=== PATIENT | male | born 1940 | race African-American/Black ===

== ENCOUNTER 2019-04-07 14:23 | Emergency (ER) | payer OTHER, MEDICARE ==
[2019-04-07] MEDS ORDERED: NA CHLORIDE 0.9% 1,000 ML ONE (15:01)
[2019-04-07] MEDS ORDERED: IPRATROPIUM BROM 0.5MG/2.5ML ONE (15:01)
[2019-04-07] MEDS ORDERED: CEFTRIAXONE/SWI 1gm 1 GM/10 ML SYR ONE (15:01)
[2019-04-07] MEDS ORDERED: METHYLPREDNISOLONE 125 MG INJ ONE (15:01)
[2019-04-07] MEDS ORDERED: ALBUTEROL 2.5 MG/3 ML NEB SOL ONE (15:01)
--- NOTE | 2019-04-07 15:25 | RAD REPORT ---
EXAM DESCRIPTION: RAD - Chest Single View - 04/07/2019 3:12 pm CLINICAL HISTORY: DYSPNEA Chest pain. COMPARISON: Chest Single View dated 09/14/2017; Chest Pa And Lat (2 Views) dated 07/17/2017; Chest Sin gle View dated 01/24/2017 FINDINGS: Portable technique limits examination quality. The lungs are grossly clear. The heart is normal in size. No displaced fractures. IMPRESSION: No acute intrathoracic process suspected.
[2019-04-07 15:45] LABS: Absolute Lymphocytes (CBC) 2.4 K/uL (0.7-4.9); Basophils % 1.2 % (0-1.3); Hematocrit 46.7 % (39.6-49.0); Lymphocytes % 26.5 % (15.3-44.8); MPV 9.4 fL (7.6-11.3); Protime INR 0.89; RBC Red Blood Cell Count 5.52 M/uL (4.33-5.43)
[2019-04-07 15:58] LABS: ALT/SGPT 64 U/L (12-78); AST/SGOT 60 U/L (15-37); Albumin 3.6 g/dL (3.4-5.0); Alkaline Phosphatase 105 U/L (45-117); BUN Blood Urea Nitrogen 8 mg/dL (7-18); Bicarbonate 29 mmol/L (21-32); Bilirubin Direct 0.2 mg/dL (0-0.2); Bilirubin Total 0.6 mg/dL (0.2-1.0); Glucose Level 112 mg/dL (74-106); Lipase 154 U/L (73-393); Magnesium 2.2 mg/dL (1.8-2.4); NT PRO-BNP 70 pg/mL (<450); Potassium 4.2 mmol/L (3.5-5.1); Protein, Total 8.1 g/dL (6.4-8.2); Sodium Level 141 mmol/L (136-145); Troponin (Emerg Dept Use Only) < 0.02 ng/mL (0.0-0.045)
--- NOTE | 2019-04-07 17:25 | RAD REPORT ---
EXAM DESCRIPTION: CT - Chest For Pe Angio - 04/07/2019 4:51 pm CLINICAL HISTORY: Chest pain. COPD;Cough COMPARISON: Chest Single View dated 04/07/2019 TECHNIQUE: CT angiogram of the pulmonary arteries was performed with MIP. All CT scans are performed using dose optimization technique as appropriate and may include automated exposure control or mA/KV adjustment according to patient size. FINDINGS: No evidence of pulmonary thromboembolism. No acute aortic finding demonstrated. Mild artifact is present related to respiration. The lungs are grossly clear. No significant pericardial or pleural fluid. No concerning bony finding. IMPRESSION: No evidence of pulmonary thromboembolism. No acute lung findings.
--- NOTE | 2019-04-07 17:32 | EDPHYS ---
Physician Documentation [facility] Name: Franklin Donahue Age: 78 yrs Sex: Male : 1940 Arrival Date: 04/07/2019 Time: 14:27 Bed 7 Private MD: Ivan Ceja B ED Physician Timothy Townsend HPI: 04/07 16:33 This 78 yrs old Black Male presents to ER via Ambulatory with complaints of Congestion. corrina 16:33 The patient has shortness of breath at rest, with light activity. Onset: The corrina symptoms/episode began/occurred 14 day(s) ago. Duration: The symptoms are continuous, and are steadily getting worse. The patient's shortness of breath is aggravated by coughing, exertion, light activity, supine position, walking, is alleviated by rest, sitting up, application of supplemental oxygen. The patient or guardian reports cough, that is intermittent, difficulty breathing, flu symptoms, arthralgias, low-grade fever. Modifying factors: The symptoms are alleviated by remaining still, the symptoms are aggravated by activity. Severity of symptoms: At their worst the symptoms were mild moderate in the emergency department the symptoms are unchanged. Historical: - Allergies: 14:34 No Known Allergies; la1 - PMHx: 14:34 Hyperlipidemia; Hypertension; la1 - Immunization history:: Adult Immunizations up to date. - Social history:: Smoking status: Patient uses tobacco products, tobacco pipe daily. - Ebola Screening: : No symptoms or risks identified at this time. - Family history:: not pertinent. ROS: 16:33 Constitutional: Negative for fever, chills, and weight loss, Eyes: Negative for injury, corrina pain, redness, and discharge, ENT: Negative for injury, pain, and discharge, Neck: Negative for injury, pain, and swelling, Cardiovascular: Negative for chest pain, palpitations, and edema, Abdomen/GI: Negative for abdominal pain, nausea, vomiting, diarrhea, and constipation, Back: Negative for injury and pain, : Negative for injury, bleeding, discharge, and swelling, MS/Extremity: Negative for injury and deformity, Skin: Negative for injury, rash, and discoloration, Neuro: Negative for headache, weakness, numbness, tingling, and seizure, Psych: Negative for depression, anxiety, suicide ideation, homicidal ideation, and hallucinations, Allergy/Immunology: Negative for hives, rash, and allergies, Endocrine: Negative for neck swelling, polydipsia, polyuria, polyphagia, and marked weight changes, Hematologic/Lymphatic: Negative for swollen nodes, abnormal bleeding, and unusual bruising. 16:33 Respiratory: Positive for cough, shortness of breath, wheezing, inspiratory, expiratory. Exam: 16:33 Constitutional: This is a well developed, well nourished patient who is awake, alert, corrina and in no acute distress. Head/Face: Normocephalic, atraumatic. Eyes: Pupils equal round and reactive to light, extra-ocular motions intact. Lids and lashes normal. Conjunctiva and sclera are non-icteric and not injected. Cornea within normal limits. Periorbital areas with no swelling, redness, or edema. ENT: Nares patent. No nasal discharge, no septal abnormalities noted. Tympanic membranes are normal and external auditory canals are clear. Oropharynx with no redness, swelling, or masses, exudates, or evidence of obstruction, uvula midline. Mucous membranes moist. Neck: Trachea midline, no thyromegaly or masses palpated, and no cervical lymphadenopathy. Supple, full range of motion without nuchal rigidity, or vertebral point tenderness. No Meningismus. Chest/axilla: Normal chest wall appearance and motion. Nontender with no deformity. No lesions are appreciated. Cardiovascular: Regular rate and rhythm with a normal S1 and S2. No gallops, murmurs, or rubs. Normal PMI, no JVD. No pulse deficits. Abdomen/GI: Soft, non-tender, with normal bowel sounds. No distension or tympany. No guarding or rebound. No evidence of tenderness throughout. Back: No spinal tenderness. No costovertebral tenderness. Full range of motion. Male : Normal genitalia with no discharge or lesions. Skin: Warm, dry with normal turgor. Normal color with no rashes, no lesions, and no evidence of cellulitis. MS/ Extremity: Pulses equal, no cyanosis. Neurovascular intact. Full, normal range of motion. Neuro: Awake and alert, GCS 15, oriented to person, place, time, and situation. Cranial nerves II-XII grossly intact. Motor strength 5/5 in all extremities. Sensory grossly intact. Cerebellar exam normal. Normal gait. Psych: Awake, alert, with orientation to person, place and time. Behavior, mood, and affect are within normal limits. 16:33 Respiratory: mild respiratory distress is noted, Respirations: no acute changes, Breath sounds: bronchial sounds, that are moderate, decreased breath sounds, rhonchi, + upper airway congestion. wheezing: inspiratory expiratory Respiratory rate: 20 Vital Signs: 14:35 BP 140 / 83; Pulse 110; Resp 18; Temp 99.1; Pulse Ox 95% on R/A; Weight 81.65 kg; la1 Height 5 ft. 9 in. (175.26 cm); 15:30 BP 142 / 80; Pulse 100; Resp 18 S; Pulse Ox 94% on R/A; sg 16:30 BP 150 / 72; Pulse 99; Resp 17 S; Pulse Ox 94% on R/A; sg 17:57 BP 153 / 78; Pulse 100; Resp 18; Pulse Ox 98% on R/A; sg 14:35 Body Mass Index 26.58 (81.65 kg, 175.26 cm) la1 MDM: 14:36 Patient medically screened. [facility] 16:35 Data reviewed: vital signs, nurses notes, lab test result(s), EKG, radiologic studies, [facility] CT scan, plain films. 04/07 14:56 Order name: Basic Metabolic Panel; Complete Time: 16:11 [facility] 04/07 14:56 Order name: CBC with Diff; Complete Time: 16:11 [facility] 04/07 14:56 Order name: LFT's; Complete Time: 16:11 [facility] 04/07 14:56 Order name: Magnesium; Complete Time: 16:11 [facility] 04/07 14:56 Order name: NT PRO-BNP; Complete Time: 16:11 [facility] 04/07 14:56 Order name: PT-INR; Complete Time: 16:11 [facility] 04/07 14:56 Order name: Troponin (emerg Dept Use Only); Complete Time: 16:11 [facility] 04/07 14:56 Order name: XRAY Chest (1 view); Complete Time: 16:11 [facility] 04/07 14:56 Order name: Lipase; Complete Time: 16:11 [facility] 04/07 14:56 Order name: Blood Culture Adult (2) [facility] 04/07 14:56 Order name: Procalcitonin; Complete Time: 16:30 [facility] 04/07 14:57 Order name: Influenza Screen (a \T\ B); Complete Time: 16:11 [facility] 04/07 16:30 Order name: CT Chest For PE Angio; Complete Time: 17:30 [facility] 04/07 14:56 Order name: EKG; Complete Time: 14:58 [facility] 04/07 14:56 Order name: Cardiac monitoring; Complete Time: 15:03 [facility] 04/07 14:56 Order name: EKG - Nurse/Tech; Complete Time: 15:03 [facility] 04/07 14:56 Order name: IV Saline Lock; Complete Time: 15:38 [facility] 04/07 14:56 Order name: Labs collected and sent; Complete Time: 15:38 [facility] 04/07 14:56 Order name: O2 Per Protocol; Complete Time: 15:04 [facility] 04/07 14:56 Order name: O2 Sat Monitoring; Complete Time: 15:04 [facility] Administered Medications: 15:20 Drug: Albuterol - atroVENT (3:1) (2.5 mg - 0.5 mg) 3 ml Route: Nebulizer; sg 16:00 Follow up: Response: No adverse reaction sv 17:00 Drug: NS 0.9% 1000 ml Route: IV; Rate: 125 ml/hr; Site: right forearm; sg 17:00 Drug: Rocephin 1 grams Route: IV; Rate: per protocol; Site: right forearm; sg 18:00 Follow up: Response: No adverse reaction; IV Status: Completed infusion; IV Intake: sg 990ml 17:02 Drug: SOLU-Medrol 125 mg Route: IVP; Site: right forearm; sg 18:00 Follow up: Response: No adverse reaction sv 17:42 Not Given (Patient Refused): Albuterol 5 mg Inhalation once sg 17:57 Not Given (Other Intervention Used): Zithromax 500 mg IVPB once over 1 hrs; mix in 250 sg mL NS 17:57 Drug: Zithromax 500 mg Route: PO; sg 18:39 Follow up: Response: No adverse reaction sv 18:15 Drug: Augmentin 875 mg Route: PO; sg 18:38 Follow up: Response: No adverse reaction sv Disposition: 04/07/19 17:31 Discharged to Home. Impression: Bronchitis, not specified as acute or chronic, Tobacco use, Tobacco abuse counseling, Cough. - Condition is Stable. - Discharge Instructions: Acute Bronchitis, Adult, How to Use an Inhaler, Steps to Quit Smoking, Smoking Hazards, Upper Respiratory Infection, Adult, Upper Respiratory Infection, Adult, [id number], Steps to Quit Smoking, [id number]. - Prescriptions for Albuterol Sulfate 90 mcg/actuation - inhale 1-2 puff by INHALATION route every 4-6 hours; 1 Inhaler. Albuterol Sulfate 2.5 mg /3 mL (0.083 %) Inhalation Solution for Nebulization - inhale 1 unit by NEBULIZATION route every 8 hours As needed; 1 box. Prednisone 20 mg Oral Tablet - take 2 tablet by ORAL route once daily for 5 days; 10 tablet. Zithromax 500 mg Oral Tablet - take 1 tablet by ORAL route once daily for 5 days; 5 tablet. Cheratussin AC 10- 100 mg/5 mL Oral liquid - take 10 milliliter by ORAL route every 4 hours; 160 milliliter. Augmentin 875- 125 mg Oral Tablet - take 1 tablet by ORAL route every 12 hours for 10 days; 20 tablet. - Medication Reconciliation Form, Thank You Letter, Antibiotic Education, Prescription Opioid Use form. - Follow up: Ivan Ceja; When: 2 - 3 days; Reason: Recheck today's complaints, Continuance of care, Re-evaluation by your physician. Follow up: Shyam Graff; When: 2 - 3 days; Reason: Recheck today's complaints, Continuance of care, Re-evaluation by your physician. - Problem is new. - Symptoms have improved. Signatures: Dispatcher [employer] EDMS Mark Bowman RN RN sg Anderson, Corey, MD MD cha Attema, Lee, RN RN la1 Verde, Stephanie RN Corrections: (The following items were deleted from the chart) 18:03 17:31 04/07/2019 17:31 Discharged to Home. Impression: Bronchitis, not specified as corrina acute or chronic; Tobacco use; Tobacco abuse counseling. Condition is Stable. Discharge Instructions: Acute Bronchitis, Adult, How to Use an Inhaler, Steps to Quit Smoking, Smoking Hazards, Upper Respiratory Infection, Adult, Upper Respiratory Infection, Adult, [id number], Steps to Quit Smoking, [id number]. Prescriptions for Albuterol Sulfate 90 mcg/actuation - inhale 1-2 puff by INHALATION route every 4-6 hours; 1 Inhaler, Albuterol Sulfate 2.5 mg /3 mL (0.083 %) Inhalation Solution for Nebulization - inhale 1 unit by NEBULIZATION route every 8 hours As needed; 1 box, Prednisone 20 mg Oral Tablet - take 2 tablet by ORAL route once daily for 5 days; 10 tablet, Zithromax 500 mg Oral Tablet - take 1 tablet by ORAL route once daily for 5 days; 5 tablet. and Forms are Medication Reconciliation Form, Thank You Letter, Antibiotic Education, Prescription Opioid Use. Follow up: Ivan Ceja; When: 2 - 3 days; Reason: Recheck today's complaints, Continuance of care, Re-evaluation by your physician. Follow up: Shyam Graff; When: 2 - 3 days; Reason: Recheck today's complaints, Continuance of care, Re-evaluation by your physician. Problem is new. Symptoms have improved. corrina 18:47 18:03 04/07/2019 17:31 Discharged to Home. Impression: Bronchitis, not specified as sg acute or chronic; Tobacco use; Tobacco abuse counseling; Cough. Condition is Stable. Discharge Instructions: Acute Bronchitis, Adult, How to Use an Inhaler, Steps to Quit Smoking, Smoking Hazards, Upper Respiratory Infection, Adult, Upper Respiratory Infection, Adult, [id number], Steps to Quit Smoking, [id number]. Prescriptions for Albuterol Sulfate 90 mcg/actuation - inhale 1-2 puff by INHALATION route every 4-6 hours; 1 Inhaler, Albuterol Sulfate 2.5 mg /3 mL (0.083 %) Inhalation Solution for Nebulization - inhale 1 unit by NEBULIZATION route every 8 hours As needed; 1 box, Prednisone 20 mg Oral Tablet - take 2 tablet by ORAL route once daily for 5 days; 10 tablet, Zithromax 500 mg Oral Tablet - take 1 tablet by ORAL route once daily for 5 days; 5 tablet. and Forms are Medication Reconciliation Form, Thank You Letter, Antibiotic Education, Prescription Opioid Use. Follow up: Ivan Ceja; When: 2 - 3 days; Reason: Recheck today's complaints, Continuance of care, Re-evaluation by your physician. Follow up: Shyam Graff; When: 2 - 3 days; Reason: Recheck today's complaints, Continuance of care, Re-evaluation by your physician. Problem is new. Symptoms have improved. corrina
--- NOTE | 2019-04-07 17:32 | ER ---
Nurse's Notes [facility] Name: Franklin Donahue Age: 78 yrs Sex: Male : 1940 Arrival Date: 04/07/2019 Time: 14:27 Bed 7 Private MD: Ivan Ceja B Diagnosis: Bronchitis, not specified as acute or chronic;Tobacco use;Tobacco abuse counseling;Cough Presentation: 04/07 14:33 Presenting complaint: Patient states: I feel fatigue, have had a productive cough for la1 about a week. Transition of care: patient was not received from another setting of care. Resp Distress? No respiratory distress is noted at this time. Onset of symptoms was April 07, 2019. Risk Assessment: Do you want to hurt yourself or someone else? Patient reports no desire to harm self or others. Initial Sepsis Screen: Does the patient meet any 2 criteria? No. Patient's initial sepsis screen is negative. Does the patient have a suspected source of infection? No. Patient's initial sepsis screen is negative. Care prior to arrival: None. 14:33 Method Of Arrival: Ambulatory la1 14:33 Acuity: CORY 3 la1 Historical: - Allergies: 14:34 No Known Allergies; la1 - PMHx: 14:34 Hyperlipidemia; Hypertension; la1 - Immunization history:: Adult Immunizations up to date. - Social history:: Smoking status: Patient uses tobacco products, tobacco pipe daily. - Ebola Screening: : No symptoms or risks identified at this time. - Family history:: not pertinent. Screenin:15 Abuse screen: Denies threats or abuse. Denies injuries from another. Nutritional sg screening: No deficits noted. Tuberculosis screening: No symptoms or risk factors identified. Never had TB. Fall Risk None identified. Assessment: 15:15 General: Appears in no apparent distress. well groomed, well developed, well nourished, sg Behavior is calm, cooperative, appropriate for age. General: Reports chills for 2-3 days, fatigue for. Pain: Complains of pain in body aches. Neuro: Level of Consciousness is awake, alert, obeys commands, Oriented to person, place, time, Accounts Payable Processor are equal bilaterally Moves all extremities. Full function Gait is steady, Speech is normal, Facial symmetry appears normal, Pupils are PERRLA. Cardiovascular: Heart tones S1 S2 present Capillary refill is brisk in bilateral fingers Patient's skin is warm and dry. Chest pain is denied. Respiratory: Airway is patent Respiratory effort is even, unlabored, Breath sounds are diminished in left posterior lower lobe and right posterior lower lobe. GI: Abdomen is round non-distended, Reports tolerance of fluids, tolerance of food. : No signs and/or symptoms were reported regarding the genitourinary system. EENT: Oral mucosa is moist. Derm: Skin is pink, warm \T\ dry. Musculoskeletal: Circulation, motion, and sensation intact. Range of motion: intact in all extremities, Swelling absent. Vital Signs: 14:35 BP 140 / 83; Pulse 110; Resp 18; Temp 99.1; Pulse Ox 95% on R/A; Weight 81.65 kg; la1 Height 5 ft. 9 in. (175.26 cm); 15:30 BP 142 / 80; Pulse 100; Resp 18 S; Pulse Ox 94% on R/A; sg 16:30 BP 150 / 72; Pulse 99; Resp 17 S; Pulse Ox 94% on R/A; sg 17:57 BP 153 / 78; Pulse 100; Resp 18; Pulse Ox 98% on R/A; sg 14:35 Body Mass Index 26.58 (81.65 kg, 175.26 cm) la1 ED Course: 14:27 Patient arrived in ED. as 14:27 Ivan Ceja MD is Private Physician. as 14:34 Triage completed. la1 14:35 Arm band placed on left wrist. la1 14:36 Timothy Townsend MD is Attending Physician. [facility] 14:38 Mark Bowman, SEAN is Primary Nurse. sg 15:06 EKG done, by career technology teacher. reviewed by Timothy Townsend MD. sm3 15:13 XRAY Chest (1 view) In Process Unspecified. EDMS 15:15 Initial lab(s) drawn, by vt, sent to lab. First set of blood cultures drawn by me. sg Inserted saline lock: 20 gauge in right forearm, using aseptic technique. Blood collected. 15:30 Second set of blood cultures drawn by me. sg 16:[address] sg 16:52 CT Chest For PE Angio In Process Unspecified. EDMS 17:31 Ivan Ceja MD is Referral Physician. corrina 17:31 Shyam Graff MD is Referral Physician. [facility] Administered Medications: 15:20 Drug: Albuterol - atroVENT (3:1) (2.5 mg - 0.5 mg) 3 ml Route: Nebulizer; sg 16:00 Follow up: Response: No adverse reaction sv 17:00 Drug: NS 0.9% 1000 ml Route: IV; Rate: 125 ml/hr; Site: right forearm; sg 17:00 Drug: Rocephin 1 grams Route: IV; Rate: per protocol; Site: right forearm; sg 18:00 Follow up: Response: No adverse reaction; IV Status: Completed infusion; IV Intake: sg 990ml 17:02 Drug: SOLU-Medrol 125 mg Route: IVP; Site: right forearm; sg 18:00 Follow up: Response: No adverse reaction sv 17:42 Not Given (Patient Refused): Albuterol 5 mg Inhalation once sg 17:57 Not Given (Other Intervention Used): Zithromax 500 mg IVPB once over 1 hrs; mix in 250 sg mL NS 17:57 Drug: Zithromax 500 mg Route: PO; sg 18:39 Follow up: Response: No adverse reaction sv 18:15 Drug: Augmentin 875 mg Route: PO; sg 18:38 Follow up: Response: No adverse reaction sv Intake: 18:00 IV: 990ml; Total: 990ml. sg Outcome: 17:31 Discharge ordered by . [facility] 18:47 Patient left the ED. sg Signatures: Dispatcher [employer] Nica Gustafson RN RN sv Gay, Steven, RN RN sg Anderson, Corey, MD MD cha Martinez, Amelia as Attema, Lee, RN RN la1 Yesenia Shultz 3
[2019-04-07] MEDS ORDERED: AZITHROMYCIN 250 MG TAB ONE (17:53)
[2019-04-07] MEDS ORDERED: AMOX/K CLAV 875 MG TAB ONE (18:02)
--- NOTE | 2019-04-08 07:15 | EKG ---
Test Date: 2019-04-07 Test Time: 15:02:05 Division Toll Wire Chief: MIGUEL MEASUREMENT RESULTS: Intervals: Rate: 93 VT: 156 QRSD: 128 QT: 386 QTc: 479 Roosevelt: P: 77 VT: 156 QRS: 104 T: 52 INTERPRETIVE STATEMENTS: Normal sinus rhythm Right bundle branch block Abnormal ECG Compared to ECG 09/14/2017 13:02:37 Right bundle-branch block now present Atrial premature complex(es) no longer present Electronically Signed On 04-08-19 07:13:28 CDT by Bola Lundberg
== END 2019-04-07 18:47 | disposition home or self-care (01) ==
LOC: ER 14:23
DX: J40 Bronchitis, not specified as acute or chronic (principal); I10 Essential (primary) hypertension; Z72.0 Tobacco use; Z71.6 Tobacco abuse counseling
CPT/HCPCS: 96365; 93005; 87040 ×2; 85025; 80048; 36415; 83735; 85610; 80076; 84484; 83690; 84145; 83880; 87804 ×2; 71275; 71045; 94640; 96375; 99285; Q9967; J0696; J7030; J2930

== ENCOUNTER 2019-04-13 12:23 | Emergency (ER) | payer OTHER, MEDICARE ==
[2019-04-13] MEDS ORDERED: NA CHLORIDE 0.9% 1,000 ML ONE (12:48)
[2019-04-13 13:23] LABS: Absolute Lymphocytes (CBC) 2.8 K/uL (0.7-4.9); Basophils % 0.6 % (0-1.3); Hematocrit 46.6 % (39.6-49.0); Lymphocytes % 30.5 % (15.3-44.8); MPV 9.3 fL (7.6-11.3); RBC Red Blood Cell Count 5.46 M/uL (4.33-5.43)
[2019-04-13 13:32] LABS: BUN Blood Urea Nitrogen 20 mg/dL (7-18); Bicarbonate 28 mmol/L (21-32); Glucose Level 123 mg/dL (74-106); Potassium 3.8 mmol/L (3.5-5.1); Sodium Level 138 mmol/L (136-145)
--- NOTE | 2019-04-13 13:47 | RAD REPORT ---
EXAM DESCRIPTION: Noe Lr (2 Views)04/13/2019 1:23 pm CLINICAL HISTORY: Cough COMPARISON: April 07, 2019 FINDINGS: The lungs appear clear of acute infiltrate. The heart is borderline enlarged IMPRESSION: No acute abnormalities displayed
--- NOTE | 2019-04-13 14:39 | ER ---
Nurse's Notes [facility] Name: Franklin Donahue Age: 78 yrs Sex: Male : 1940 Arrival Date: 04/13/2019 Time: 12:27 Bed 7 Private MD: Ivan Ceja B Diagnosis: Malnutrition;Malaise and fatigue Presentation: 04/13 12:33 Presenting complaint: Patient states: "I was seen here last week with bronchitis and I aa5 finished the 5 days of antibiotics but now I am just so weak and I have no appetite and I am sure I am dehydrated" Pt denies pain. 12:33 Transition of care: patient was not received from another setting of care. Onset of aa5 symptoms was March 2019. Care prior to arrival: None. 12:33 Acuity: CORY 3 aa5 12:33 Method Of Arrival: Ambulatory aa5 12:37 Initial Sepsis Screen: Does the patient meet any 2 criteria? HR > 90 bpm. No. Patient's sv initial sepsis screen is negative. Does the patient have a suspected source of infection? No. Patient's initial sepsis screen is negative. 12:37 Risk Assessment: Do you want to hurt yourself or someone else? Patient reports no sv desire to harm self or others. Care prior to arrival: Medication(s) given: finished abx recently. Historical: - Allergies: 12:35 No Known Allergies; sv - PMHx: 12:35 Hyperlipidemia; Hypertension; sv - Immunization history:: Adult Immunizations up to date. - Ebola Screening: : No symptoms or risks identified at this time. - Social history:: Smoking status: Patient uses tobacco products, pipe. Screenin:36 Abuse screen: Denies threats or abuse. Denies injuries from another. Nutritional sv screening: No deficits noted. Tuberculosis screening: No symptoms or risk factors identified. Fall Risk None identified. Assessment: 12:50 General: Appears in no apparent distress. comfortable, slender, Behavior is calm, sv cooperative, appropriate for age. General: Reports fatigue for >3 days, decreased appetite. Pain: Denies pain. Neuro: Level of Consciousness is awake, alert, obeys commands, Oriented to person, place, time, situation, Moves all extremities. Full function Gait is steady, Reports weakness. Respiratory: Airway is patent Respiratory effort is even, unlabored, Respiratory pattern is regular, symmetrical, Breath sounds are clear bilaterally. Derm: Skin is pink, warm \\T\\ dry. 13:43 Reassessment: Patient appears in no apparent distress at this time. No changes from previously documented assessment. Patient and/or family updated on plan of care and expected duration. Pain level reassessed. Patient is alert, oriented x 3, equal unlabored respirations, skin warm/dry/pink. Vital Signs: 12:34 BP 153 / 92; Pulse 105; Resp 18 S; Temp 98.2(O); Pulse Ox 99% on R/A; Weight 80.74 kg aa5 (R); Height 5 ft. 9 in. (175.26 cm) (R); Pain 0/10; 13:42 BP 136 / 75; Pulse 81; Resp 18; Pulse Ox 100% ; sv 14:45 BP 132 / 78; Pulse 79; Resp 18; Pulse Ox 99% ; sv 12:34 Body Mass Index 26.29 (80.74 kg, 175.26 cm) aa5 ED Course: 12:27 Patient arrived in ED. mr 12:27 Ivan Ceja MD is Private Physician. mr 12:34 Nica Peralta RN is Primary Nurse. sv 12:35 Arm band placed on Patient placed in an exam room, on a stretcher, on pulse oximetry. sv 12:35 Patient has correct armband on for positive identification. Bed in low position. Call sv light in reach. Adult w/ patient. Pulse ox on. NIBP on. Door closed. Head of bed elevated. 12:37 [facility] Guard[facility]C [facility]. snw 12:37 Romina Khan MD is Attending Physician. snw 12:38 Triage completed. aa5 12:53 Radiology exam delayed due to RN WILL CALL WHEN PT IS READY FOR X RAY. mh1 12:55 Initial lab(s) drawn, by me, sent to lab. Inserted saline lock: 20 gauge in right sv forearm, using aseptic technique. Blood collected. Flushed right forearm with 5 ml normal saline. 13:11 Awaiting for x-ray. sv 13:14 Patient moved to radiology. sv 13:15 Warm blanket given. sv 13:27 Patient moved back from radiology. sv 13:27 Awaiting lab results, Awaiting radiology results. sv 13:35 Chest Pa And Lat (2 Views) XRAY In Process Unspecified. EDMS 13:55 Awaiting radiology results. sv 14:36 Ivan Ceja MD is Referral Physician. snw 14:58 No provider procedures requiring assistance completed. IV discontinued, intact, ss bleeding controlled, No redness/swelling at site. Pressure dressing applied. Administered Medications: 13:02 Drug: NS 0.9% 1000 ml Route: IV; Rate: 125 ml/hr; Site: right forearm; sv 14:58 Follow up: IV Status: IV converted to saline lock ss Outcome: 14:37 Discharge ordered by . snw 14:58 Discharged to home ambulatory. ss 14:58 Condition: good 14:58 Discharge instructions given to patient, family, Instructed on discharge instructions, follow up and referral plans. Demonstrated understanding of instructions, follow-up care, medications. 14:58 Patient left the ED. ss Signatures: Dispatcher [employer] EDMS Nica Peralta RN RN Ana Maria Guardado, WEED INSPECTOR-C WEED INSPECTOR-Ernie Zenaida Ramirez mr MaldonadoNicky 1 Tiffany Ty, RN RN aa5 Katrina Linares RN RN
--- NOTE | 2019-04-13 14:39 | EDPHYS ---
Physician Documentation [facility] Name: Franklin Donahue Age: 78 yrs Sex: Male : 1940 Arrival Date: 04/13/2019 Time: 12:27 Bed 7 Private MD: Ivan Ceja B ED Physician Romina Khan HPI: 04/13 13:02 This 78 yrs old Black Male presents to ER via Ambulatory with complaints of Decreased snw Appetite, dehydration. 13:02 Onset: The symptoms/episode began/occurred acutely. Associated signs and symptoms: snw Pertinent positives: feeling poorly, no vomiting, no appetite. It is unknown whether or not the patient has had similar symptoms in the past. The patient has been recently seen by a physician: dillon with bronchitis, does not feel completely recovered. Historical: - Allergies: 12:35 No Known Allergies; sv - PMHx: 12:35 Hyperlipidemia; Hypertension; sv - Immunization history:: Adult Immunizations up to date. - Ebola Screening: : No symptoms or risks identified at this time. - Social history:: Smoking status: Patient uses tobacco products, pipe. ROS: 12:59 Eyes: Negative for injury, pain, redness, and discharge, ENT: Negative for injury, snw pain, and discharge, Neck: Negative for injury, pain, and swelling, Cardiovascular: Negative for chest pain, palpitations, and edema, Respiratory: Negative for shortness of breath, cough, wheezing, and pleuritic chest pain, Abdomen/GI: Negative for abdominal pain, nausea, vomiting, diarrhea, and constipation, Back: Negative for injury and pain, : Negative for injury, bleeding, discharge, and swelling, MS/Extremity: Negative for injury and deformity, Skin: Negative for injury, rash, and discoloration, Neuro: Negative for headache, weakness, numbness, tingling, and seizure, Psych: Negative for depression, anxiety, suicide ideation, homicidal ideation, and hallucinations. 12:59 Constitutional: Positive for body aches, malaise, poor PO intake, most calories from ETOH. Exam: 12:59 Constitutional: This is a well developed, well nourished patient who is awake, alert, snw and in no acute distress. Head/Face: Normocephalic, atraumatic. Eyes: Pupils equal round and reactive to light, extra-ocular motions intact. Lids and lashes normal. Conjunctiva and sclera are non-icteric and not injected. Cornea within normal limits. Periorbital areas with no swelling, redness, or edema. ENT: Nares patent. No nasal discharge, no septal abnormalities noted. Tympanic membranes are normal and external auditory canals are clear. Oropharynx with no redness, swelling, or masses, exudates, or evidence of obstruction, uvula midline. Mucous membranes moist. Neck: Trachea midline, no thyromegaly or masses palpated, and no cervical lymphadenopathy. Supple, full range of motion without nuchal rigidity, or vertebral point tenderness. No Meningismus. Chest/axilla: Normal chest wall appearance and motion. Nontender with no deformity. No lesions are appreciated. Cardiovascular: Tachycardic rate and rhythm with a normal S1 and S2. No gallops, murmurs, or rubs. Normal PMI, no JVD. No pulse deficits. Respiratory: Lungs have equal breath sounds bilaterally, clear to auscultation and percussion. No rales, rhonchi or wheezes noted. No increased work of breathing, no retractions or nasal flaring. Abdomen/GI: Soft, non-tender, with normal bowel sounds. No distension or tympany. No guarding or rebound. No evidence of tenderness throughout. Back: No spinal tenderness. No costovertebral tenderness. Full range of motion. Skin: Warm, dry with normal turgor. Normal color with no rashes, no lesions, and no evidence of cellulitis. MS/ Extremity: Pulses equal, no cyanosis. Neurovascular intact. Full, normal range of motion. Neuro: Awake and alert, GCS 15, oriented to person, place, time, and situation. Cranial nerves II-XII grossly intact. Motor strength 5/5 in all extremities. Sensory grossly intact. Cerebellar exam normal. Normal gait. Psych: Awake, alert, with orientation to person, place and time. Behavior, mood, and affect are within normal limits. Vital Signs: 12:34 BP 153 / 92; Pulse 105; Resp 18 S; Temp 98.2(O); Pulse Ox 99% on R/A; Weight 80.74 kg aa5 (R); Height 5 ft. 9 in. (175.26 cm) (R); Pain 0/10; 13:42 BP 136 / 75; Pulse 81; Resp 18; Pulse Ox 100% ; sv 14:45 BP 132 / 78; Pulse 79; Resp 18; Pulse Ox 99% ; sv 12:34 Body Mass Index 26.29 (80.74 kg, 175.26 cm) aa5 MDM: 12:41 Patient medically screened. snw 13:04 Data reviewed: vital signs, nurses notes. Data interpreted: Pulse oximetry: on room air snw is 99 %. Interpretation: normal. Counseling: I had a detailed discussion with the patient and/or guardian regarding: the historical points, exam findings, and any diagnostic results supporting the discharge/admit diagnosis, the presence of at least one elevated blood pressure reading (>120/80) during this emergency department visit, lab results, radiology results. 14:34 Response to treatment: the patient's symptoms have mildly improved after treatment, snw Discussed need to decrease ETOH consumption and have a well balanced, caloric intake. 04/13 12:45 Order name: CBC with Diff; Complete Time: 13:32 snw 04/13 12:45 Order name: Chem 7; Complete Time: 13:34 snw 04/13 12:45 Order name: Chest Pa And Lat (2 Views) XRAY; Complete Time: 14:01 snw Administered Medications: 13:02 Drug: NS 0.9% 1000 ml Route: IV; Rate: 125 ml/hr; Site: right forearm; sv 14:58 Follow up: IV Status: IV converted to saline lock ss Disposition: 04/13/19 14:37 Discharged to Home. Impression: Malnutrition, Malaise and fatigue. - Condition is Stable. - Discharge Instructions: High-Fiber Diet, Iron-Rich Diet, Fatigue, Malnutrition. - Medication Reconciliation Form, Thank You Letter, Antibiotic Education, Prescription Opioid Use form. - Follow up: Ivan Ceja MD; When: 2 - 3 days; Reason: Recheck today's complaints, Continuance of care, Re-evaluation by your physician. Follow up: Emergency Department; When: As needed; Reason: Worsening of condition. Signatures: Dispatcher [employer] Nica Gustafson RN RN sv Ana Maria Guardado, MILL LABORER-C MILL LABORER-Erniew Katrina Linares RN RN ss Corrections: (The following items were deleted from the chart) 13:05 12:59 Constitutional: This is a well developed, well nourished patient who is awake, snw alert, and in no acute distress. Head/Face: Normocephalic, atraumatic. Eyes: Pupils equal round and reactive to light, extra-ocular motions intact. Lids and lashes normal. Conjunctiva and sclera are non-icteric and not injected. Cornea within normal limits. Periorbital areas with no swelling, redness, or edema. ENT: Nares patent. No nasal discharge, no septal abnormalities noted. Tympanic membranes are normal and external auditory canals are clear. Oropharynx with no redness, swelling, or masses, exudates, or evidence of obstruction, uvula midline. Mucous membranes moist. Neck: Trachea midline, no thyromegaly or masses palpated, and no cervical lymphadenopathy. Supple, full range of motion without nuchal rigidity, or vertebral point tenderness. No Meningismus. Chest/axilla: Normal chest wall appearance and motion. Nontender with no deformity. No lesions are appreciated. Cardiovascular: Regular rate and rhythm with a normal S1 and S2. No gallops, murmurs, or rubs. Normal PMI, no JVD. No pulse deficits. Respiratory: Lungs have equal breath sounds bilaterally, clear to auscultation and percussion. No rales, rhonchi or wheezes noted. No increased work of breathing, no retractions or nasal flaring. Abdomen/GI: Soft, non-tender, with normal bowel sounds. No distension or tympany. No guarding or rebound. No evidence of tenderness throughout. Back: No spinal tenderness. No costovertebral tenderness. Full range of motion. Skin: Warm, dry with normal turgor. Normal color with no rashes, no lesions, and no evidence of cellulitis. MS/ Extremity: Pulses equal, no cyanosis. Neurovascular intact. Full, normal range of motion. Neuro: Awake and alert, GCS 15, oriented to person, place, time, and situation. Cranial nerves II-XII grossly intact. Motor strength 5/5 in all extremities. Sensory grossly intact. Cerebellar exam normal. Normal gait. Psych: Awake, alert, with orientation to person, place and time. Behavior, mood, and affect are within normal limits. snw 14:58 14:37 04/13/2019 14:37 Discharged to Home. Impression: Malnutrition; Malaise and ss fatigue. Condition is Stable. Forms are Medication Reconciliation Form, Thank You Letter, Antibiotic Education, Prescription Opioid Use. Follow up: Ivan Ceja; When: 2 - 3 days; Reason: Recheck today's complaints, Continuance of care, Re-evaluation by your physician. Follow up: Emergency Department; When: As needed; Reason: Worsening of condition. snw
== END 2019-04-13 14:58 | disposition home or self-care (01) ==
LOC: ER 12:23
DX: E46 Unspecified protein-calorie malnutrition (principal); R53.81 Other malaise; R53.83 Other fatigue; I10 Essential (primary) hypertension; Z72.0 Tobacco use
CPT/HCPCS: 85025; 80048; 36415; 71046; J7030; 96360; 96361; 99284

== ENCOUNTER 2020-10-11 09:28 | Emergency (ER) | payer OTHER, MEDICARE ==
--- OUTSIDE RECORDS SUMMARY | 2020-10-11 09:31 | XMS REPORT | Continuity of Care Document ---
:1940 Author Organization [facility] t Address [address] [place] [address] Care Team Providers Name Role Phone Kira Barrera Attending Clinician Problems This patient has no known problems. Allergies, Adverse Reactions, Alerts This patient has no known allergies or adverse reactions. Medications This patient has no known medications. Procedures This patient has no known procedures. Encounters Start End Encounter Admission Attending Care Care Encounter Source Date/Time Date/Time Type Type Clinicians Facility Department ID 2020-10-02 2020-10-02 Emergency Brianna Orlando [facility] [id number] 16:06:00 21:32:00 Kira Lara [id number] [place] [id number] [place] [id number] Results This patient has no known results.
--- NOTE | 2020-10-11 10:12 | EDPHYS ---
Physician Documentation [facility] Name: Franklin Donahue Age: 79 yrs Sex: Male : 1940 Arrival Date: 10/11/2020 Time: 09:34 Bed 10 Private MD: Ivan Ceja B ED Physician Garrett Hutchins HPI: 10/11 10:12 This 79 yrs old Black Male presents to ER via Unassigned with complaints of Staple kb Removal. 10:12 The patient has lisa on the scalp. Previous treatment: The patient was initially kb treated 9 day(s) ago, the care was rendered at another emergency department, [facility], Treatment type: The patient's original treatment included lisa. Sutures/lisa progress: The patient has no c/o's. The wound is well-healing with no redness, swelling, discharge, or dehiscence reported. The patient has not experienced similar symptoms in the past. The patient has not recently seen a physician. Historical: - Allergies: 10:16 No Known Allergies; tw2 - Home Meds: 10:16 Lipitor 10 mg Oral tab [Active]; Bystolic 20 mg Oral tab [Active]; tw2 - PMHx: 10:16 Hyperlipidemia; Hypertension; tw2 ROS: 10:12 Constitutional: Negative for fever, chills, and weight loss, Neuro: Negative for kb headache, weakness, numbness, tingling, and seizure. 10:12 Skin: Positive for of the scalp, lisa in place. Exam: 10:12 Constitutional: This is a well developed, well nourished patient who is awake, alert, kb and in no acute distress. Head/Face: Normocephalic, atraumatic. 10:12 Respiratory: the patient does not display signs of respiratory distress, Respirations: normal. 10:12 Skin: Wound recheck: Staple laceration closure: the wound is healing well, the edges are well approximated, no evidence of dehiscence, no drainage, no erythema, no swelling. 10:12 Neuro: Orientation: is normal, to person, place, time \T\ situation. Mentation: is normal, able to follow commands, Motor: is normal, moves all fours, Sensation: is normal, Gait: is steady, without difficulty. Procedures: 10:12 Suture/Staple removal: Removed 9 lisa, from scalp, site appears well healed, Patient kb tolerated well. MDM: 09:50 Patient medically screened. kb 10:14 Data reviewed: vital signs, nurses notes. Data interpreted: Pulse oximetry: on room air kb is 98 %. Interpretation: normal. Counseling: I had a detailed discussion with the patient and/or guardian regarding: the historical points, exam findings, and any diagnostic results supporting the discharge/admit diagnosis, the need for outpatient follow up, a family practitioner, to return to the emergency department if symptoms worsen or persist or if there are any questions or concerns that arise at home. Administered Medications: No medications were administered Disposition: 15:23 Co-signature as Attending Physician, Garrett Hutchins MD I agree with the assessment and kdr plan of care. Disposition: 10/11/20 10:11 Discharged to Home. Impression: Encounter for removal of sutures - lisa. - Condition is Stable. - Discharge Instructions: Suture Removal, Care After. - Medication Reconciliation Form, Thank You Letter, Antibiotic Education, Prescription Opioid Use form. - Follow up: Emergency Department; When: As needed; Reason: Worsening of condition. Follow up: Private Physician; When: 2 - 3 days; Reason: Recheck today's complaints, Continuance of care, Re-evaluation by your physician. Signatures: Daniella Pryor, ANAMIKA-C ELECTRICAL PROSPECTOR-Garrett Springer MD MD [facility] Tiffany Ty, RN RN aa5 Kaleigh Brown RN RN tw2 Corrections: (The following items were deleted from the chart) 10:14 10:12 The history from the nurse's notes was reviewed. kb kb 10:22 10:11 10/11/2020 10:11 Discharged to Home. Impression: Encounter for removal of sutures aa5 - lisa. Condition is Stable. Forms are Medication Reconciliation Form, Thank You Letter, Antibiotic Education, Prescription Opioid Use. Follow up: Emergency Department; When: As needed; Reason: Worsening of condition. Follow up: Private Physician; When: 2 - 3 days; Reason: Recheck today's complaints, Continuance of care, Re-evaluation by your physician. kb
--- NOTE | 2020-10-11 10:23 | ER ---
Nurse's Notes [facility] Name: Franklin Donahue Age: 79 yrs Sex: Male : 1940 Arrival Date: 10/11/2020 Time: 09:34 Bed 10 Private MD: Ivan Ceja B Diagnosis: Encounter for removal of sutures-lisa Presentation: 10/11 09:55 Chief complaint: Patient states: just need to get my lisa out on the top of my head. tw2 Coronavirus screen: At this time, the client does not indicate any symptoms associated with coronavirus-19. Ebola Screen: Patient denies travel to an Ebola-affected area in the 21 days before illness onset. Initial Sepsis Screen: Does the patient meet any 2 criteria? No. Patient's initial sepsis screen is negative. Does the patient have a suspected source of infection? No. Patient's initial sepsis screen is negative. Risk Assessment: Do you want to hurt yourself or someone else? Patient reports no desire to harm self or others. Onset of symptoms was October 11, 2020. 09:55 Method Of Arrival: Ambulatory tw2 09:55 Acuity: CORY 5 tw2 Triage Assessment: 10:16 General: Appears in no apparent distress. well groomed, Behavior is calm, cooperative, tw2 appropriate for age. Pain: Denies pain. Respiratory: Airway is patent Respiratory effort is even, unlabored, Respiratory pattern is regular, symmetrical. Musculoskeletal: Range of motion: intact in all extremities. Historical: - Allergies: 10:16 No Known Allergies; tw2 - Home Meds: 10:16 Lipitor 10 mg Oral tab [Active]; Bystolic 20 mg Oral tab [Active]; tw2 - PMHx: 10:16 Hyperlipidemia; Hypertension; tw2 ED Course: 09:34 Patient arrived in ED. am2 09:34 Ivan Ceja MD is Private Physician. am2 09:50 Daniella Pryor FNP-C [facility]. kb 09:50 Garrett Hutchins MD is Attending Physician. kb 10:16 Triage completed. tw2 10:17 Arm band placed on. tw2 Administered Medications: No medications were administered Outcome: 10:11 Discharge ordered by MD. kb 10:15 Patient left the ED. aa5 10:15 Condition: Pt left ER before d/c paperwork could be given. aa5 Signatures: Daniella Pryor, BANKRUPTCY LEGAL ASSISTANT-C BANKRUPTCY LEGAL ASSISTANT-Ckb Tiffany Ty, RN RN aa5 Kaleigh Brown RN RN tw2 Lalitha Jeffries am2 Corrections: (The following items were deleted from the chart) 10:14 10:12 The history from the nurse's notes was reviewed. kb kb 10:22 10:11 Tiffany Ty, RN is Primary Nurse. aa5 aa5 10:23 10:22 Patient left the ED. aa5 aa5
== END 2020-10-11 10:22 | disposition home or self-care (01) ==
LOC: ER 09:28
DX: Z48.02 Encounter for removal of sutures (principal)
CPT/HCPCS: 99281

== ENCOUNTER 2023-07-27 14:49 | Inpatient (IN) | payer OTHER, MEDICARE ==
--- OUTSIDE RECORDS SUMMARY | 2023-07-27 14:52 | XMS REPORT | Continuity of Care Document ---
Author Name Unknown Address [address] [facility] [address] [place], [place] [id number] [place] [address] th[address] [facility] [address] [place] [address] Care Team Providers Care New Accounts Banking Representative Name Role Phone Maverick Ceja Attending Clinician Unavailable Brianna Barrera Attending Clinician [phone] Brianna KEVIN Attending Clinician Unavailable Payers Payer Name Policy Type Policy Number Effective Date Expirati on Date Source Problems Condition Name Condition Details Condition Category Status Onset Date Resolution Date Last Treatment Date Treating Clinician Comments Source [id number] Elevated PSA Problem [facility] [id number] BPH loc w urin obs/LUTS Problem [facility] [id number] Peyronie's disease Problem [facility] Allergies, Adverse Reactions, Alerts Allergy Name Allergy Type Status Severity Reaction(s) Onset Date Inactive Date Treating Clinician Comments Source NO KNOWN ALLERGIE S Drug Class Active [facility] Social History Social Habit Start Date Stop Date Quantity Comments Source History of Tobacco Use [facility] Sex Assigned At [facility] Exposure to SARS-CoV-2 (event) Not sure [facility] Smoking Status Start Date Stop Date Source Unknown if ever smoked [facility] Never Smoker [facility] Medications Ordered Medication Name Filled Medication Name Start Date Stop Date Current Medication? Ordering Clinician Indication Dosage Frequency Signature (SIG) Comments Components Source Flomax 0.4 MG Flomax 0.4 MG 04-14 00:00: 00 11-10 00:00 :00 No 1{capsu le} QD Flomax 0.4 MG Flomax 0.4 MG Flomax 0.4 MG 04-14 00:00: 00 11-10 00:00 :00 No 1{capsu le} QD Flomax 0.4 MG tetanus-dip htheria toxoids (TENIVAC) 5-2 Lf unit/0.5 mL injection 0.5 mL 10-03 04:30: 00 10-03 03:27 :00 No .5mL 0.5 mL, Intramuscu lar, ONCE, 1 dose, 10/02/20 at 2230, Routine [facility] naproxen (NAPROSYN) 500 mg tablet 10-02 00:00: 00 Yes [id number] 500mg Take 1 tablet by mouth 2 (two) times daily with meals. [facility] Centrum Silver - Centrum Silver - No Centrum Silver - Tylenol 325 MG Tylenol 325 MG No 1{table t_as_ne eded} 6xD Tylenol 325 MG Rosuvastati n Calcium 5 MG Rosuvastati n Calcium 5 MG No 1{table t} QD Rosuvastat in Calcium 5 MG Nebivolol HCl 20 MG Nebivolol HCl 20 MG No 1{table t} QD Nebivolol HCl 20 MG Tylenol 325 MG Tylenol 325 MG No 1{table t_as_ne eded} 6xD Tylenol 325 MG Rosuvastati n Calcium 5 MG Rosuvastati n Calcium 5 MG No 1{table t} QD Rosuvastat in Calcium 5 MG Centrum Silver - Centrum Silver - No Centrum Silver - Nebivolol HCl 20 MG Nebivolol HCl 20 MG No 1{table t} QD Nebivolol HCl 20 MG Tylenol 325 MG Tylenol 325 MG No 1{table t_as_ne eded} 6xD Tylenol 325 MG Centrum Silver - Centrum Silver - No Centrum Silver - Rosuvastati n Calcium 5 MG Rosuvastati n Calcium 5 MG No 1{table t} QD Rosuvastat in Calcium 5 MG Nebivolol HCl 20 MG Nebivolol HCl 20 MG No 1{table t} QD Nebivolol HCl 20 MG Vital Signs Vital Name Observation Time Observation Value Comments Janiya gill height 2023-03-11 15:15:00 69 [in_i] Commo n [facility] weight 2023-03-11 15:15:00 185.6 [lb_av] Co mmon [facility] temperature 2023-03-11 15:15:00 98.5 [degF] Com mon [facility] bmi 2023-03-11 15:15:00 27.41 kg/m2 Comm on [facility] oximetry 2023-03-11 15:15:00 97 % Commo n [facility] respiratory rate 2023-03-11 15:15:00 18 /min [facility] blood pressure systolic 2023-03-11 15:15:00 173 mm[Hg] [facility] blood pressure diastolic 2023-03-11 15:15:00 90 mm[Hg] Common [facility] height 2022-07-16 15:15:00 69 [in_i] Commo n [facility] weight 2022-07-16 15:15:00 180 [lb_av] Comm on [facility] temperature 2022-07-16 15:15:00 98 [degF] Comm on [facility] bmi 2022-07-16 15:15:00 26.58 kg/m2 Comm on [facility] oximetry 2022-07-16 15:15:00 99 % Commo n [facility] respiratory rate 2022-07-16 15:15:00 18 /min [facility] blood pressure systolic 2022-07-16 15:15:00 126 mm[Hg] Common [facility] blood pressure diastolic 2022-07-16 15:15:00 86 mm[Hg] [facility] height 2022-04-14 15:00:00 69 [in_i] Commo n [facility] weight 2022-04-14 15:00:00 171 [lb_av] Comm on [facility] temperature 2022-04-14 15:00:00 98.6 [degF] Com mon [facility] bmi 2022-04-14 15:00:00 25.25 kg/m2 Comm on [facility] oximetry 2022-04-14 15:00:00 99 % Commo n [facility] respiratory rate 2022-04-14 15:00:00 18 /min [facility] blood pressure systolic 2022-04-14 15:00:00 141 mm[Hg] [facility] blood pressure diastolic 2022-04-14 15:00:00 75 mm[Hg] [facility] Systolic blood pressure 2020-10-03 02:20:00 168 mm[Hg] [facility] Diastolic blood pressure 2020-10-03 02:20:00 92 mm[Hg] [facility] Heart rate 2020-10-03 02:20:00 105 /min [facility] Respiratory rate 2020-10-03 02:20:00 16 /min [facility] Oxygen saturation in Arterial blood by Pulse oximetry 2020-10-03 02:20:00 97 /min [facility] Body weight 2020-10-03 00:47:00 81.647 kg [facility] Body temperature 2020-10-02 20:07:00 36.78 [place] [facility] Systolic blood pressure 2020-10-03 02:20:00 168 mm[Hg] [facility] Diastolic blood pressure 2020-10-03 02:20:00 92 mm[Hg] [facility] Heart rate 2020-10-03 02:20:00 105 /min [facility] Respiratory rate 2020-10-03 02:20:00 16 /min [facility] Oxygen saturation in Arterial blood by Pulse oximetry 2020-10-03 02:20:00 97 /min [facility] Body weight 2020-10-03 00:47:00 81.647 kg [facility] Body temperature 2020-10-02 20:07:00 36.78 [place] [facility] Procedures Procedure Date / Time Performed Performing Clinicia n Source CT HEAD WO CONTRAST 2020-10-03 01:03:31 Brianna Kevin [facility] Encounters Start Date/Time End Date/Time Encounter Type Admission Type Attending Clinicians Care Facility Care Department Encounter ID Source 2022-04-14 14:37:03 Outpatient Maverick Ceja STLMLC STLMLC [id number] [facility] 2023-03-11 00:00:00 2023-03-11 00:00:00 OFFICE VISIT ESTAB PT LEVEL 2 [facility] ST[facility]C [id number] [facility] 2022-07-16 00:00:00 2022-07-16 00:00:00 OFFICE VISIT EST PT LEVEL 3 [facility]LMLC STLMLC [id number] [facility] 2022-04-14 00:00:00 2022-04-14 00:00:00 OFFICE VISIT NEW PT LEVEL 3 STLMLC STLMLC [id number] [facility] 2020-10-02 16:06:00 2020-10-02 21:32:00 Emergency Brianna Kevin [facility] [id number] 2020-10-02 16:06:00 2020-10-02 21:32:00 Emergency Brianna Kevin [facility] [id number] [facility] 2020-10-02 16:06:00 2020-10-02 16:06:00 Emergency X Brianna KEVIN ARMURALI ERT [id number] [facility] Results Test Description Test Time Test Comments Results Resul t Comments Source CT HEAD WO CONTRAST 2020-09-17 02:24:17 Left occipitoparietal scalp laceration. No underlying calvarial fracture. No acute intracranial hemorrhage or mass effect. Preliminary Report Dictated by Resident: Suzanne Strong MD., have reviewed this study and agree with theabove report.CT HEAD WO CONTRAST HISTORY: Head trauma, mod-severe COMPARISON: None TECHNIQUE: Contiguous axial CT images of the head were obtained without theuse of intravenous contrast. Coronal and sagittal reformats were provided. FINDINGS: Left occipitoparietal scalp laceration with mild soft tissue swelling andtrace subcutaneous emphysema noted. No underlying calvarial fracture isdetected. The ventricles and cerebral sulci are normal in caliber. Cavum septumpellucidum and cavum vergae, anatomic variants. No hydrocephalus, midlineshift or pathological extra-axial fluid collection is present. The basalcisterns are unremarkable. There is no acute intracranial hemorrhage or significant mass effect. Thegray-white matter differentiation is preserved. Intracranialatheroscl erosis. The mastoid air cells and paranasal air sinuses are clear. The centralskull base is unremarkable. [facility], Radiant Results Inft User - 10/02/2020 8:25 PM CSTCT HEAD WO CONTRASTHISTORY: Head trauma, mod-severe COMPARISON: NoneTECHNIQUE: Contiguous axial CT images of the head were obtained without theuse of intravenous contrast. Coronal and sagittal reformats were provided.FINDINGS:Lef t occipitoparietal scalp laceration with mild soft tissue swelling andtrace subcutaneous emphysema noted. No underlying calvarial fracture isdetected.The ventricles and cerebral sulci are normal in caliber. Cavum septumpellucidum and cavum vergae, anatomic variants. No hydrocephalus, midlineshift or pathological extra-axial fluid collection is present. The basalcisterns are unremarkable.There is no acute intracranial hemorrhage or significant mass effect. Thegray-white matter differentiation is preserved. Intracranialatheroscl erosis.The mastoid air cells and paranasal air sinuses are clear. The centralskull base is unremarkable.IMPRESSI ONLeft occipitoparietal scalp laceration. No underlying calvarial fracture.No acute intracranial hemorrhage or mass effect.Preliminary Report Dictated by Resident: Suzanne Rob MD., have reviewed this study and agree with theabove report. [facility]
--- NOTE | 2023-07-27 15:26 | RAD REPORT ---
EXAM DESCRIPTION: CT - Ct Stroke Brain Wo Cont - 07/27/2023 3:19 pm CLINICAL HISTORY: Dizziness COMPARISON: 2018 TECHNIQUE: Computed axial tomography of the head was obtained. All CT scans are performed using dose optimization technique as appropriate and may include automated exposure control or mA/KV adjustment according to patient size. FINDINGS: An intracranial bleed is not seen . The ventricles are normal in caliber. No extra-axial fluid collection is noted. No significant hyperdensity within the brain Fluid within the sinuses/ mastoids is not seen. IMPRESSION: No acute intracranial abnormality is seen. If patient's symptoms persist MRI of the bra in would be recommended Dr Abrams of the emergency room was notified at 3:19 p.m. July 27, 2023
--- NOTE | 2023-07-27 15:34 | RAD REPORT ---
EXAM DESCRIPTION: Jaqueline Angio07/27/2023 3:22 pm CLINICAL HISTORY: Dizziness COMPARISON: None TECHNIQUE: 100 cc Isovue [address] angiogram of the neck was obtained. 3D MIPS reconstruction performed. All CT scans are performed using dose optimization technique as appropriate and may include automated exposure control or mA/KV adjustment according to patient size. FINDINGS: Mild plaque is present within common carotid, internal carotid and external carotid arteri es bilaterally Vertebral arteries unremarkable No dissection is seen. No high-grade stenosis IMPRESSION: No significant abnormality is displayed [place] crieria Mild stenosis 0 to 49 % Moderate stenosis 50-69% Severe stenosis 70-99%
--- NOTE | 2023-07-27 15:38 | RAD REPORT ---
EXAM DESCRIPTION: CTHead angio07/27/2023 3:22 pm CLINICAL HISTORY: Dizziness COMPARISON: None TECHNIQUE: 100 cc Isovue [address] angiogram of the head was obtained. 3D MIPS reconstruction performed. All CT scans are performed using dose optimization technique as appropriate and may include automated exposure control or mA/KV adjustment according to patient size. FINDINGS: The basilar, anterior cerebral, middle cerebral and posterior cerebral arteries do not dem onstrate a significant stenosis Mild calcified plaque distal internal carotid arteries An aneurysm is not seen No large vessel occlusion IMPRESSION: No significant abnormality is displayed
[2023-07-27] MEDS ORDERED: TENECTEPLASE 50 MG/10 ML VIAL IV ONE (15:45)
[2023-07-27 15:54] LABS: Absolute Lymphocytes (CBC) 2.6 K/uL (0.7-4.9); Lymphocytes % 26.7 % (15.3-44.8); MCV 85.2 fL (80-100); MPV 9.7 fL (7.6-11.3); Platelets 212 thou/uL (152-406); RBC Red Blood Cell Count 5.16 M/uL (4.33-5.43)
--- NOTE | 2023-07-27 15:55 | RAD REPORT ---
EXAM DESCRIPTION: Noe Single View07/27/2023 3:36 pm CLINICAL HISTORY: Dizziness COMPARISON: 2019 FINDINGS: Mild bilateral interstitial lung opacities. Heart is mildly enlarged IMPRESSION: These findings may indicate mild interstitial pulmonary edema
[2023-07-27] MEDS ORDERED: MECLIZINE HCL 12.5 MG TAB ONE (16:13)
[2023-07-27 16:19] LABS: Troponin High Sensitivity 6.9 pg/mL (<58.9)
[2023-07-27 16:21] LABS: Potassium 3.6 mEq/L (3.5-5.1)
--- NOTE | 2023-07-27 16:53 | ER ---
Nurse's Notes [facility] Name: Franklin Donahue Age: 82 yrs Sex: Male : 1940 Arrival Date: 07/27/2023 Time: 14:49 Bed 14 Private MD: Ivan Ceja B Diagnosis: Cerebral infarction, unspecified;Dizziness and giddiness Presentation: 07/27 15:03 Chief complaint: Patient states: Dizziness, fast heart rate and nausea onset this cm10 morning. Pt denies any other symptoms, no pain. Coronavirus screen: Vaccine status: Patient reports receiving the 2nd dose of the covid vaccine. Client denies travel out of the [place] in the last 14 days. Ebola Screen: Patient denies travel to an Ebola-affected area in the 21 days before illness onset. No symptoms or risks identified at this time. Initial Sepsis Screen: Does the patient meet any 2 criteria? No. Patient's initial sepsis screen is negative. Does the patient have a suspected source of infection? No. Patient's initial sepsis screen is negative. Risk Assessment: Do you want to hurt yourself or someone else? Patient reports no desire to harm self or others. Onset of symptoms was July 27, 2023. 15:03 Method Of Arrival: Wheelchair cm10 15:03 Acuity: CORY 2 hb Historical: - Allergies: 15:05 No Known Allergies; cm10 - PMHx: 15:05 Hyperlipidemia; Hypertension; cm10 - Immunization history:: Adult Immunizations up to date. - Social history:: Smoking status: Patient reports the use of cigarette tobacco products, denies chronic smoking, but will smoke occasionally. - Family history:: not pertinent. - Hospitalizations: : No recent hospitalization is reported. Screenin:42 [place] Swallow Protocol Exclusion Criteria: Exclusion Criteria Result: Proceed Brief hb Cognitive Screen What is your name? Normal, Where are you right now? Normal, What year is it? Normal. Oral Mechanism Examination Oral Mechanism Result: Normal. 3 oz Water Swallow Challenge: Pt able to drink all water without stopping, coughing, choking or throat clearing: Yes Result: PASS. 15:[address] [facility] ED Fall Risk Assessment (Adult) Score/Fall Risk Level 3 or more points = High hb Risk Oriented to surroundings, Maintained a safe environment, Educated pt \T\ family on fall prevention, incl call for assistance when getting out of bed, Assessed \T\ reinforced patient's understanding of fall precautions, Provided non-skid footwear, Hourly rounding (assess needs \T\ fall precautionary measures) done, Used ambulatory aids as needed (educated on \T\ assisted with). Abuse screen: Denies threats or abuse. Denies injuries from another. Nutritional screening: No deficits noted. Tuberculosis screening: No symptoms or risk factors identified. Assessment: 15:10 Reassessment: CODE STROKE CALLED AT THIS TIME. cm10 15:51 General: Appears in no apparent distress. Behavior is calm, cooperative. Pain: Denies hb pain. Neuro: Level of Consciousness is awake, alert, obeys commands, Oriented to person, place, time, situation, Reports dizziness. Cardiovascular: Patient's skin is warm and dry. Respiratory: Respiratory effort is even, unlabored, Respiratory pattern is regular, symmetrical. GI: No signs and/or symptoms were reported involving the gastrointestinal system. : No signs and/or symptoms were reported regarding the genitourinary system. EENT: No signs and/or symptoms were reported regarding the EENT system. Derm: Skin is pink, warm \T\ dry. Musculoskeletal: No signs and/or symptoms reported regarding the musculoskeletal system. 16:00 Reassessment: TNK administered at 1540, pls see paper chart for stroke packet. Family hb at bedside. Vital Signs: 15:03 BP 170 / 75; Pulse 103; Resp 16; Temp 97.8; Pulse Ox 100% on R/A; Weight 79.38 kg; cm10 Height 5 ft. 9 in. ; Pain 0/10; 19:13 BP 159 / 85; Pulse 84; Resp 16; Pulse Ox 100% ; cp4 15:03 Body Mass Index 25.84 (79.38 kg, 175.26 cm) cm10 15:03 Pain Scale: Adult cm10 NIH Stroke Scale Scores: 15:40 NIHSS Score: 0 pattern carrier Course: 14:50 Patient arrived in ED. rg4 14:51 Ivan Ceja MD is Private Physician. rg4 14:57 Nacho Dee MD is Attending Physician. rn 15:04 Triage completed. cm10 15:05 Arm band placed on Patient placed in waiting room. cm10 15:21 CT Stroke Brain w/o Contrast In Process Unspecified. EDMS 15:24 CT Head Angio In Process Unspecified. EDMS 15:24 CT Neck Angio In Process Unspecified. EDMS 15:38 Stroke CXR 1 View In Process Unspecified. EDMS 15:47 Tisha Norman, RN is Primary Nurse. hb 15:52 Patient has correct armband on for positive identification. Provided Education on: hb tests, medications, result times, admission plan. 16:52 Romina Katz MD is Hospitalizing Provider. rn 17:25 Brain Wo Cont MRI In Process Unspecified. EDMS 19:13 No provider procedures requiring assistance completed. Patient admitted, IV remains in cp4 place. Administered Medications: 15:40 Drug: TNK FOR STROKE - Tenecteplase IV 0.25 mg/kg IV at per protocol once; MAX hb DOSE 25 mg, IVP over 5 seconds {Co-Signature: me1 (Nicolle Hays RN).} Route: IV; Rate: per protocol; Site: right forearm; 16:19 Drug: Meclizine PO 50 mg PO once Route: PO; hb Medication: 15:51 VIS not applicable for this client. hb Outcome: 16:52 Decision to Hospitalize by Provider. rn 19:13 Admitted to ICU accompanied by nurse, via wheelchair, with oxygen, on monitor, with cp4 chart, Report called to Key 19:13 Condition: stable 19:13 Instructed on 19:15 Patient left the ED. cp4 NIH Stroke Scale - NIH Stroke Score Date: 07/27/2023 Time: 15:40 Total Score = 0 10. Dysarthria (speech clarity - read or repeat words) - 0(Normal) 11. Extinction and Inattention (visual/tactile/auditory/spatial/personal) - 0(No abnormality) 1a. Level of Consciousness (LOC) - 0(Alert) 1b. Level of Consciousness (LOC) (Month \T\ Age) - 0(Both) 1c. LOC Commands (Open \T\ Closes Eyes/Label Paster) - 0(Both) 2. Best Gaze (Lateral Gaze Paresis) - 0(Normal) 3. Visual Field Loss - 0(No visual loss) 4. Facial Palsy - 0(Normal) 5a. Left Arm: Motor (10-second hold) - 0(No drift) 5b. Right Arm: Motor (10-second hold) - 0(No drift) 6a. Left Leg: Motor (5-second hold - always test supine) - 0(No drift) 6b. Right Leg: Motor (5-second hold - always test supine) - 0(No drift) 7. Limb Ataxia (finger/nose \T\ heel/moss - test with eyes open) - 0(Absent) 8. Sensory Loss (pinprick arms/legs/face) - 0(Normal) 9. Best Language: Aphasia (description/naming/reading) - 0(No aphasia) Initials: rn Signatures: Dispatcher [employer] EDNacho Lua MD MD rn Baxter, Heather, RN RN hb Garcia, Rubi rg4 Lanie Perez RN RN cm10 Mel Baptiste cp4 Nicolle Hays RN me1 Corrections: (The following items were deleted from the chart) 15:19 15:03 Acuity: CORY 3 cm10 hb
--- NOTE | 2023-07-27 16:53 | EDPHYS ---
Physician Documentation [facility] Name: Franklin Donahue Age: 82 yrs Sex: Male : 1940 Arrival Date: 07/27/2023 Time: 14:49 Bed 14 Private MD: Ivan Ceja B ED Physician Nacho Dee HPI: 07/27 15:21 This 82 yrs old Black Male presents to ER via Wheelchair with complaints of Dizziness. rn 15:21 The patient presents with dizziness, feeling off balance. Onset: The symptoms/episode rn began/occurred today. Modifying factors: The symptoms are alleviated by nothing, the symptoms are aggravated by nothing. Associated signs and symptoms: Pertinent negatives: abdominal pain, blurred vision, chest pain, confusion, diaphoresis, focal weakness, head injury, headache, palpitations, seizure, shortness of breath, syncope, vomiting. Severity of symptoms: At their worst the symptoms were moderate in the emergency department the symptoms have improved. The patient has not experienced similar symptoms in the past. Patient reports 8 and then laid down for a nap before noon today. [place] fine before nap. Woke up from nap feeling dizzy and unsteady. Reports nausea but no vomiting. Patient reports feels like it is has upset stomach and possibly diarrhea. No chest pain or shortness of breath.. Historical: - Allergies: 15:05 No Known Allergies; cm10 - PMHx: 15:05 Hyperlipidemia; Hypertension; cm10 - Immunization history:: Adult Immunizations up to date. - Social history:: Smoking status: Patient reports the use of cigarette tobacco products, denies chronic smoking, but will smoke occasionally. - Family history:: not pertinent. - Hospitalizations: : No recent hospitalization is reported. ROS: 15:21 Constitutional: Negative for fever, chills, and weight loss, Cardiovascular: Negative rn for chest pain, palpitations, and edema, Respiratory: Negative for shortness of breath, cough, wheezing, and pleuritic chest pain, Abdomen/GI: Negative for abdominal pain, vomiting, and constipation, MS/Extremity: Negative for injury and deformity, Skin: Negative for injury, rash, and discoloration, Neuro: Negative for headache, weakness, numbness, tingling, and seizure, Exam: 15:40 Constitutional: This is a well developed, well nourished patient who is awake, alert, rn and in no acute distress. Head/Face: Normocephalic, atraumatic. Eyes: Nystagmus present on left lateral gaze bilateral Cardiovascular: Tachycardic, regular. No pulse deficits. Respiratory: No increased work of breathing, no retractions or nasal flaring. Abdomen/GI: Soft, non-tender MS/ Extremity: Pulses equal, no cyanosis. Neurovascular intact. Full, normal range of motion. Equal circumference. Neuro: Awake and alert, GCS 15, oriented to person, place, time, and situation. Cranial nerves II-XII grossly intact. Motor strength 5/5 in all extremities. Sensory grossly intact. Unsteady gait and exhibits ataxia when getting out of bed to be weighed Vital Signs: 15:03 BP 170 / 75; Pulse 103; Resp 16; Temp 97.8; Pulse Ox 100% on R/A; Weight 79.38 kg; cm10 Height 5 ft. 9 in. ; Pain 0/10; 19:13 BP 159 / 85; Pulse 84; Resp 16; Pulse Ox 100% ; cp4 15:03 Body Mass Index 25.84 (79.38 kg, 175.26 cm) cm10 15:03 Pain Scale: Adult cm10 NIH Stroke Scale Scores: 15:40 NIHSS Score: 0 rn MDM: 14:58 Patient medically screened. rn 15:19 Discussion of test interpretation with radiology: I had a discussion with rn labor and delivery regarding a test interpretation. CT head without contrast negative per Dr. Smith. ED course: . 15:19 ED course: Patient denies any dizziness at this time. Patient states just does not feel rn right but cannot be more specific. Patient denies any focal neurological deficits. Patient reports feels as if he just had a bowel movement he would feel better. Patient attributes symptoms to eating badly and multiple different cookies prior to taking nap today and feels like he has an upset stomach and needs to use the bathroom. CT head negative. NIH stroke scale is 0. Patient feels better just not completely at baseline which warrants further workup. Patient states went to take a nap before noon today and when he got up from his nap he felt dizziness and upset stomach with nausea.. 15:30 ED course: Consulted with Dr. Mchugh, neurology, he recommends TNKase given small rn window for treatment and patient with vertigo-like symptoms. Had long discussion with patient and he is willing to get TNKase. Understands all risks and benefits. Has no contraindications at this time.. 16:51 Differential diagnosis: CVA, generalized weakness, hyperventilation, hypovolemia, rn idiopathic dizziness, TIA, vertigo. Data reviewed: vital signs, nurses notes, lab test result(s), EKG, radiologic studies, CT scan, and as a result, I will admit patient. Consideration of Admission/Observation Patient was admitted/placed on observation. Escalation of care including admission/observation considered. Management of patient was discussed with the following: Home Economist Consumer Service: Dr. Mchugh, recommended TNKase. Care significantly affected by the following chronic conditions: Hypertension, Hyperlipidemia. Counseling: I had a detailed discussion with the patient and/or guardian regarding the historical points, exam findings, and any diagnostic results supporting the discharge/admit diagnosis, lab results, radiology results, the need for further work-up and treatment in the hospital. Response to treatment: the patient's symptoms have mildly improved after treatment. 16:52 ED course: I personally spent 35 minutes engaged in work directly related to the rn individual patient's care. This does not include any time spent performing procedures. The patient has been deemed critically ill because of acute cerebral infarction requiring TNKase, multiple consultations and discussion with patient and was at home.. 17:47 ED course: Patient is feeling better, no noted complications.. 07/27 15:11 Order name: Basic Metabolic Panel; Complete Time: 16:23 07/27 15:11 Order name: CBC with Diff; Complete Time: 16:23 07/27 15:11 Order name: High Sensitivity Troponin; Complete Time: 16:23 07/27 15:11 Order name: Protime (+inr); Complete Time: 16:55 07/27 15:11 Order name: Ptt, Activated; Complete Time: 16:55 07/27 15:35 Order name: CREATININE WHOLE BLOOD; Complete Time: 15:38 EDDC 07/27 16:16 Order name: Glucose, Ancillary Testing; Complete Time: 16:23 [facility] 07/27 17:12 Order name: Basic Metabolic Panel [facility] 07/27 17:12 Order name: Basic Metabolic Panel [facility] 07/27 17:12 Order name: Basic Metabolic Panel [facility] 07/27 17:12 Order name: Basic Metabolic Panel EDDC 07/27 17:12 Order name: CBC with Automated Diff EDMS 07/27 17:12 Order name: CBC with Automated Diff EDMS 07/27 17:12 Order name: CBC with Automated Diff EDMS 07/27 17:12 Order name: CBC with Automated Diff EDMS 07/27 17:12 Order name: Lipid Profile EDDC 07/27 17:12 Order name: Lipid Profile EDDC 07/27 17:12 Order name: Magnesium EDDC 07/27 17:12 Order name: Magnesium EDMS 07/27 17:12 Order name: Magnesium EDMS 07/27 17:12 Order name: Magnesium EDDC 07/27 15:11 Order name: CT Head Angio; Complete Time: 16:23 rn 07/27 15:11 Order name: CT Neck Angio; Complete Time: 15:38 rn 07/27 15:11 Order name: CT Stroke Brain w/o Contrast; Complete Time: 15:38 rn 07/27 15:11 Order name: Stroke CXR 1 View; Complete Time: 16:23 rn 07/27 15:12 Order name: Brain Wo Cont MRI; Complete Time: 17:48 rn 07/27 17:12 Order name: Echo with Doppler EDDC 07/27 15:11 Order name: EKG; Complete Time: 15:12 rn 07/27 17:12 Order name: IRF Screen EDDC 07/27 17:12 Order name: Physical Therapy Consult EDDC 07/27 17:12 Order name: Speech Therapy Consult EDDC 07/27 15:11 Order name: Accucheck; Complete Time: 16:19 rn 07/27 15:11 Order name: Cardiac monitoring; Complete Time: 16:19 rn 07/27 15:11 Order name: EKG - Nurse/Tech; Complete Time: 16:19 rn 07/27 15:11 Order name: IV Saline Lock; Complete Time: 16:19 rn 07/27 15:11 Order name: Labs collected and sent rn 07/27 15:11 Order name: O2 Per Protocol; Complete Time: 16:19 rn 07/27 15:11 Order name: O2 Sat Monitoring; Complete Time: 16:19 rn 07/27 15:11 Order name: Stroke Swallow Screen; Complete Time: 16:19 rn Administered Medications: 15:40 Drug: TNK FOR STROKE - Tenecteplase IV 0.25 mg/kg IV at per protocol once; MAX hb DOSE 25 mg, IVP over 5 seconds {Co-Signature: me1 (Nicolle Hays RN).} Route: IV; Rate: per protocol; Site: right forearm; 16:19 Drug: Meclizine PO 50 mg PO once Route: PO; hb Disposition Summary: 07/27/23 16:52 Hospitalization Ordered Notes: Hospitalization Status: Inpatient Admission rn Provider: Romina Katz rn Condition: Stable rn Problem: new rn Symptoms: have improved rn Bed/Room Type: Standard rn Location: Intensive Care Unit(07/27/23 18:07) bd Room Assignment: 1-(07/27/23 18:07) bd Diagnosis - Cerebral infarction, unspecified rn - Dizziness and giddiness rn Forms: - Medication Reconciliation Form rn - SBAR form rn - Leadership Thank You Letter rn circulating time excluding procedures: 16:52 Critical care time: Bedside Care: 30 minutes, Consultation: 5 minutes. Total time: 35 rn minutes NIH Stroke Scale - NIH Stroke Score Date: 07/27/2023 Time: 15:40 Total Score = 0 10. Dysarthria (speech clarity - read or repeat words) - 0(Normal) 11. Extinction and Inattention (visual/tactile/auditory/spatial/personal) - 0(No abnormality) 1a. Level of Consciousness (LOC) - 0(Alert) 1b. Level of Consciousness (LOC) (Month \T\ Age) - 0(Both) 1c. LOC Commands (Open \T\ Closes Eyes/Husbandry Person) - 0(Both) 2. Best Gaze (Lateral Gaze Paresis) - 0(Normal) 3. Visual Field Loss - 0(No visual loss) 4. Facial Palsy - 0(Normal) 5a. Left Arm: Motor (10-second hold) - 0(No drift) 5b. Right Arm: Motor (10-second hold) - 0(No drift) 6a. Left Leg: Motor (5-second hold - always test supine) - 0(No drift) 6b. Right Leg: Motor (5-second hold - always test supine) - 0(No drift) 7. Limb Ataxia (finger/nose \T\ heel/moss - test with eyes open) - 0(Absent) 8. Sensory Loss (pinprick arms/legs/face) - 0(Normal) 9. Best Language: Aphasia (description/naming/reading) - 0(No aphasia) Initials: rn Signatures: Dispatcher [employer] EDMally Meza Roman, MD MD rn Baxter, Heather RN Lanie Rader RN RN cm10 Nicolle Hays RN me1 Corrections: (The following items were deleted from the chart) 17:52 16:52 Telemetry/MedSurg (Inpatient) jesse bd 17:52 16:52 jesse bd 18: 17:52 [facility] ER HOLD bd bd 18: 17:52 ERHOLD- bd bd
[2023-07-27 16:54] LABS: Protime INR 0.96
[2023-07-27] MEDS ORDERED: ONDANSETRON 4 MG/2 ML VIAL IV PRN (17:07)
--- NOTE | 2023-07-27 17:07 | P.HP ---
Certification for Inpatient Patient admitted to: Inpatient With expected LOS: <2 Midnights Patient will require the following post-hospital care: None Practitioner: I am a practitioner with admitting privileges, knowledge of patient current condition, hospital course, and medical plan of care. Services: Services provided to patient in accordance with Admission requirements found in Title 42 Section 412.3 of the Code of Federal Regulations Patient History Date of Service: 07/27/23 History of Present Illness: 86-year-old -[place] male with a past medical history of hyperlipidemia, hypertension, presents to the emergency room with dizziness. He reports symptoms started after he woke up from a nap today. He denied abdominal pain, chest pain, shortness of breath blurred vision, confusion, focal weakness or deficits., Headache, head injury, seizure. Patient was given TNK at 1540, meclizine, plan to admit for cerebral infarction, unspecified, dizziness and giddiness. Vital signs BP 170 / 75; Pulse 103; Resp 16; Temp 97.8; Pulse Ox 100% on R/A; Weight 79.38 kg; Height 5 ft. 9 in. ; Pain 0/10; laboratory evaluation CBC unremarkable CMP unremarkable troponin normal 6.90. Brain CT IMPRESSION: No acute intracranial abnormality is seen. If patient's symptoms persist MRI of the brain would be recommended. CT of the head and neck FINDINGS: Mild plaque is present within common carotid, internal carotid and external carotid arteries bilaterally Vertebral arteries unremarkable No dissection is seen. No high-grade stenosisIMPRESSION: No significant abnormality is displaye Allergies No Known Allergies Allergy (Uncoded 01/20/17 18:59) Unknown - Past Medical/Surgical History -: Hypertension -: Hyperlipidemia Review of Systems per HPI Physical Examination - Physical Exam General: Alert, In no apparent distress HEENT: Atraumatic, Normocephalic Neck: Supple, 2+ carotid pulse no bruit Respiratory: Clear to auscultation bilaterally, Normal air movement Cardiovascular: No edema, Normal pulses Capillary refill: <2 Seconds Gastrointestinal: Normal bowel sounds, Soft and benign Musculoskeletal: No clubbing, No swelling Integumentary: No rashes, No breakdown Neurological: Normal speech, Normal strength at 5/5 x4 extr, Sensation intact, Abnormal gait - Studies Laboratory Data (last 24 hrs) 07/27/23 07/27/23 07/27/23 15:39 15:39 15:39 WBC 9.60 Hgb 14.9 Hct 44.0 Plt Count 212 PT 10.6 INR 0.96 APTT 33.7 Sodium 138 Potassium 3.6 BUN 11 Creatinine 1.01 Glucose 194 H Assessment and Plan - Plan Assessment plan Cerebral infarction unspecified Dizziness and giddiness Neurology consult, TNK given at 1500 PT eval, fall precautions Brain CT IMPRESSION: No acute intracranial abnormality is seen. If patient's symptoms persist MRI of the brain would be recommended. CT of the head and neck FINDINGS: Mild plaque is present within common carotid, internal carotid and external carotid arteries bilaterally Vertebral arteries unremarkable No dissection is seen. No high-grade stenosisIMPRESSION: No significant abnormality is displaye Repeat CT in 24 hours MRI brain ordered Hyperlipidemia Hypertensive emergency allow permissive HTN BP 170 / 75; Pulse 103; Resp 16; Temp 97.8; Pulse Ox 100% on R/A; Weight 79.38 kg; Height 5 ft. 9 in. ; Pain 0/10; laboratory evaluation CBC unremarkable CMP unremarkable troponin normal 6.90. Diet cardiac Full code DVT SCDs Discharge Plan: Home - Advance Directives Does patient have a Living Will: No Does patient have a Durable POA for Healthcare: No - Code Status/Comfort Care Code Status: Full Code Physician Review: Patient Assessed, Agree with Above Assessment and Plan Critical Care: Yes Time Spent Managing Pts Care (In Minutes): 60
--- NOTE | 2023-07-27 17:42 | RAD REPORT ---
EXAM DESCRIPTION: MRI - Brain Wo Cont - 07/27/2023 5:30 pm CLINICAL HISTORY: Dizziness COMPARISON: Head CT July 27, 2023 TECHNIQUE: Axial, sagittal, and coronal magnetic resonance images of the brain were obtained. FINDINGS: No significant abnormal signal within the brain Diffusion-weighted/ADC mapping does not reveal evidence of acute infarction. The ventricles are normal caliber. An extra-axial fluid collection is not noted. Fluid within the sinuses/mastoids is not seen IMPRESSION: No acute intracranial abnormality noted
[2023-07-27 19:35] VITALS: O2SAT 100
[2023-07-27] MEDS ORDERED: ATORVASTATIN 40 MG TAB PO SCH (21:00)
[2023-07-27] MEDS: NA CHLORIDE 0.9% 1,000 ML IV SCH (21:29)
[2023-07-27 23:46] VITALS: BMI 26.7
[2023-07-28 05:04] LABS: Absolute Lymphocytes (CBC) 2.1 K/uL (0.7-4.9); Lymphocytes % 21.7 % (15.3-44.8); MCV 84.9 fL (80-100); MPV 9.2 fL (7.6-11.3); Platelets 211 thou/uL (152-406); RBC Red Blood Cell Count 4.94 M/uL (4.33-5.43)
[2023-07-28 05:21] LABS: Magnesium 1.9 mg/dL (1.6-2.4); Potassium 4.1 mEq/L (3.5-5.1)
[2023-07-28] MEDS: NA CHLORIDE 0.9% 1,000 ML IV SCH (08:08)
--- NOTE | 2023-07-28 08:17 | P.PN ---
Subjective Date of Service: 07/28/23 Review of Systems PER HPI Physical Examination - Vital Signs Temperature: 98.8 F Blood Pressure: 154/79 Pulse: 73 Respirations: 13 Pulse Ox (%): 99 - Studies Laboratory Data (last 24 hrs) 07/27/23 07/27/23 07/27/23 15:39 15:39 15:39 WBC 9.60 Hgb 14.9 Hct 44.0 Plt Count 212 PT 10.6 INR 0.96 APTT 33.7 Sodium 138 Potassium 3.6 BUN 11 Creatinine 1.01 Glucose 194 H Assessment And Plan - Plan Assessment plan Cerebral infarction unspecified Dizziness and giddiness Neurology consult, TNK given at 1500 PT eval, fall precautions Brain CT IMPRESSION: No acute intracranial abnormality is seen. If patient's symptoms persist MRI of the brain would be recommended. CT of the head and neck FINDINGS: Mild plaque is present within common carotid, internal carotid and external carotid arteries bilaterally Vertebral arteries unremarkable No dissection is seen. No high-grade stenosisIMPRESSION: No significant abnormality is displaye Repeat CT in 24 hours MRI brain ordered IMPRESSION: No acute intracranial abnormality noted Hyperlipidemia Hypertensive emergency allow permissive HTN BP 170 / 75; Pulse 103; Resp 16; Temp 97.8; Pulse Ox 100% on R/A; Weight 79.38 kg; Height 5 ft. 9 in. ; Pain 0/10; laboratory evaluation CBC unremarkable CMP unremarkable troponin normal 6.90. Diet cardiac Full code DVT SCDs Discharge Plan: Home - Code Status/Comfort Care Code Status: Full Code Physician Review: Patient Assessed, Agree with Above Assessment and Plan Critical Care: Yes Time Spent Managing PTS Care (In Minutes): 35
[2023-07-28 12:10] VITALS: TEMP 98
--- NOTE | 2023-07-28 13:42 | EKG ---
Test Date: 2023-07-27 Test Time: 16:10:07 General Foreman: HB MEASUREMENT RESULTS: Intervals: Rate: 87 TX: 198 QRSD: 126 QT: 400 QTc: 481 [place]: P: 65 TX: 198 QRS: 69 T: 29 INTERPRETIVE STATEMENTS: Sinus rhythm with premature atrial complexes Right bundle branch block Abnormal ECG Compared to ECG 04/07/2019 15:02:05 Atrial premature complex(es) now present Electronically Signed On 07-28-23 13:39:34 FUNCTIONAL TESTER TYPEWRITERS by Bolivar Strong
--- NOTE | 2023-07-28 13:51 | ECHO ---
HEIGHT: 5 ft 9 in WEIGHT: 181 lb 4.8 oz DATE OF STUDY: 07/28/[address]: Sia Dexter WATCH BAND ASSEMBLER-C 2-DIMENSIONAL: YES M.MODE: YES DOPPLER: YES COLOR FLOW: YES TDS: PORTABLE: YES DEFINITY: BUBBLE STUDY: DIAGNOSIS: STROKE, DIZZINESS CARDIAC HISTORY: CATHERIZATION: NO SURGERY: NO PROSTHETIC VALVE: NO PACEMAKER: NO MEASUREMENTS (cm) DIASTOLIC (NORMALS) SYSTOLIC (NORMALS) IVSd 1.1 (0.6-1.2) LA Diam 2.7 (1.9-4.0) LVEF 64% LVIDd 5.3 (3.5-5.7) LVIDs 3.4 (2.0-3.5) %FS 35% LVPWd 1.1 (0.6-1.2) Ao Diam 3.1 (2.0-3.7) 2 DIMENSIONAL ASSESSMENT: RIGHT ATRIUM: NORMAL LEFT ATRIUM: NORMAL RIGHT VENTRICLE: NORMAL LEFT VENTRICLE: NORMAL TRICUSPID VALVE: NORMAL MITRAL VALVE: MILD MITRAL REGURGITATION PULMONIC VALVE: NORMAL AORTIC VALVE: NORMAL PERICARDIAL EFFUSION: NONE AORTIC ROOT: NORMAL LEFT VENTRICULAR WALL MOTION: NORMAL DOPPLER/COLOR FLOW: MILD MITRAL REGURGITATION COMMENTS: 1. NORMAL LEFT VENTRICULAR EJECTION FRACTION 55-60% 2. NORMAL WALL MOTION 3. MILD MITRAL REGURGITATION TECHNOLOGIST: STEVE LUGO
--- NOTE | 2023-07-28 15:58 | P.DS ---
Admission Date: 07/27/23 Discharge Date: 07/28/23 Disposition: ROUTINE DISCHARGE Discharge Condition: GOOD Brief History of Present Illness: 86-year-old -[place] male with a past medical history of hyperlipidemia, hypertension, presents to the emergency room with dizziness. He reports symptoms started after he woke up from a nap today. He denied abdominal pain, chest pain, shortness of breath blurred vision, confusion, focal weakness or deficits., Headache, head injury, seizure. Patient was given TNK at 1540, meclizine, plan to admit for cerebral infarction, unspecified, dizziness and giddiness. Vital signs BP 170 / 75; Pulse 103; Resp 16; Temp 97.8; Pulse Ox 100% on R/A; Weight 79.38 kg; Height 5 ft. 9 in. ; Pain 0/10; laboratory evaluation CBC unremarkable CMP unremarkable troponin normal 6.90. Brain CT IMPRESSION: No acute intracranial abnormality is seen. If patient's symptoms persist MRI of the brain would be recommended. CT of the head and neck FINDINGS: Mild plaque is present within common carotid, internal carotid and ex ternal carotid arteries bilaterally Vertebral arteries unremarkable No dissection is seen. No high-grade stenosisIMPRESSION: No significant abnormality is displaye - Physical Exam General: Alert, In no apparent distress HEENT: Atraumatic, Normocephalic Neck: Supple, 2+ carotid pulse no bruit Respiratory: Clear to auscultation bilaterally, Normal air movement Cardiovascular: No edema, Normal pulses Capillary refill: <2 Seconds Gastrointestinal: Normal bowel sounds, Soft and benign Musculoskeletal: No clubbing, No swelling Integumentary: No rashes, No breakdown Neurological: Normal speech, Normal strength at 5/5 x4 extr, Sensation intact Hospital Course: Assessment plan Cerebral infarction unspecified Dizziness and giddiness Neurology consult, TNK given at 1500 PT eval, fall precautions Brain CT IMPRESSION: No acute intracranial abnormality is seen. If patient's symptoms persist MRI of the brain would be recommended. CT of the head and neck FINDINGS: Mild plaque is present within common carotid, internal carotid and external carotid arteries bilaterally Vertebral arteries unremarkable No dissection is seen. No high-grade stenosisIMPRESSION: No significant abnormality is displaye Repeat CT in 24 hours IMPRESSION: No evidence of an acute intracranial process. MRI brain ordered IMPRESSION: No acute intracranial abnormality noted Hyperlipidemia Hypertensive emergency allow permissive HTN BP 170 / 75; Pulse 103; Resp 16; Temp 97.8; Pulse Ox 100% on R/A; Weight 79.38 kg; Height 5 ft. 9 in. ; Pain 0/10; laboratory evaluation CBC unremarkable CMP unremarkable troponin normal 6.90. Physician Discharge Instructions: -DC IV and DC home -Follow-up with PCP in 1 to 2 weeks -Please call Dr. Katz at [phone] if any questions regarding hospital stay -Please call nursing station at [phone] if any nursing or medication questi ons -Return to the emergency room if symptoms worsen Diet: Low sodium Activity: Fall precautions Vital Signs/Physical Exam: Temp Pulse Resp BP Pulse Ox 98.0 F 84 14 141/75 H 99 07/28/23 12:00 07/28/23 15:00 07/28/23 13:00 07/28/23 15:00 07/28/23 15:00 Laboratory Data at Discharge: WBC 9.80 thou/uL (4.3-10.9) 07/28/23 04:42 Hgb 13.5 g/dL (13.6-17.9) L D 07/28/23 04:42 Hct 42.0 % (39.6-49.0) 07/28/23 04:42 Plt Count 211 thou/uL (152-406) 07/28/23 04:42 PT 10.6 SECONDS (9.5-12.5) 07/27/23 15:39 INR 0.96 07/27/23 15:39 APTT 33.7 SECONDS (24.3-36.9) 07/27/23 15:39 Sodium 139 mEq/L (136-145) 07/28/23 04:42 Potassium 4.1 mEq/L (3.5-5.1) D 07/28/23 04:42 BUN 7 mg/dL (7-18) 07/28/23 04:42 Creatinine 0.82 mg/dL (0.70-1.30) 07/28/23 04:42 Glucose 106 mg/dL (74-106) 07/28/23 04:42 Magnesium 1.9 mg/dL (1.6-2.4) 07/28/23 04:42 Triglycerides 166 mg/dL (<150) H 07/28/23 04:42 Cholesterol 121 mg/dL (<200) 07/28/23 04:42 HDL Cholesterol 49 mg/dL (40-60) 07/28/23 04:42 Cholesterol/HDL Ratio 2.47 07/28/23 04:42 Home Medications: Nebivolol HCl [Bystolic*] 20 mg PO DAILY 07/27/23 Rosuvastatin Calcium 5 mg PO DAILY 07/27/23 Atorvastatin Calcium [Lipitor] 40 mg PO BEDTIME tab 07/28/23 Physician Discharge Instructions: Physician Discharge Instructions: -DC IV and DC home -Follow-up with PCP in 1 to 2 weeks -Please call Dr. Katz at [phone] if any questions regarding hospital stay -Please call nursing station at [phone] if any nursing or medication questions -Return to the emergency room if symptoms worsen Diet: Low sodium Activity: Fall precautions Followup: Ivan Ceja MD [Primary Care Provider] -
[2023-07-28 17:16] VITALS: BP 153/79
--- NOTE | 2023-07-28 17:32 | RAD REPORT ---
EXAM DESCRIPTION: CT - Head Brain Wo Cont - 07/28/2023 3:00 pm CLINICAL HISTORY: 24 hours post TNK COMPARISON: Head angio dated 07/27/2023; Ct Stroke Brain Wo Cont dated 07/27/2023; Brain Wo Cont chelle ed 07/27/2023 TECHNIQUE: Noncontrast head CT images were obtained without IV contrast. Multiplanar reformats were generated and reviewed. All CT scans are performed using dose optimization technique as appropriate and may include automated exposure control or mA/KV adjustment according to patient size. FINDINGS: No intracranial hemorrhage, mass, or edema. Midline structures are unremarkable. Normal ventricular caliber for age. Tejeda-white matter differentiation is preserved, without evidence of acute infarct. No abnormal extra- axial fluid collections. Mastoid air cells and visualized portions of the paranasal sinuses are clear. No acute bony findings. IMPRESSION: No evidence of an acute intracranial process.
== END 2023-07-28 18:28 | disposition home or self-care (01) | DRG 62 ==
LOC: ER 14:49 → 3RD-ICU 20:45
PROVIDERS: ADMIT Hospitalist; ATTEND Hospitalist
DX: I63.9 Cerebral infarction, unspecified (principal); I16.1 Hypertensive emergency; E78.5 Hyperlipidemia, unspecified; I10 Essential (primary) hypertension; F17.210 Nicotine dependence, cigarettes, uncomplicated; R29.700 NIHSS score 0; R42 Dizziness and giddiness; Z79.899 Other long term (current) drug therapy
CPT/HCPCS: 36415; 70450; 70496; 70498; 70551; 71045; 80048; 80061; 82565; 82947; 83735; 84484; 85025; 85610; 85730; 92610; 92977; 93005; 93306; 96374; 97116; 97161; 99291; J3101; J7030; J8597; Q9967

== ENCOUNTER → 2023-08-10 | Emergency (ER) | payer OTHER, MEDICARE ==
[~2023-08-10] MED LIST: NA CHLORIDE 0.9% 1,000 ML ONE
--- OUTSIDE RECORDS SUMMARY | 2023-08-10 16:22 | XMS REPORT | Continuity of Care Document ---
Author Name Unknown Address [address] [facility] [address] [place], [place] [id number] [place] [address] thconnect Address [address] [facility] [address] [place] [address] Care Team Providers Care Family Practitioner Name Role Phone Maverick Ceja Attending Clinician Unavailable Brianna Barrera Attending Clinician [phone] Brianna KEVIN Attending Clinician Unavailable Payers Payer Name Policy Type Policy Number Effective Date Expirati on Date Source Problems Condition Name Condition Details Condition Category Status Onset Date Resolution Date Last Treatment Date Treating Clinician Comments Source [id number] Elevated PSA Problem [facility] [id number] BPH loc w urin obs/LUTS Problem [facility] [id number] Peyronie's disease Problem [facility] Allergies, Adverse Reactions, Alerts Allergy Name Allergy Type Status Severity Reaction(s) Onset Date Inactive Date Treating Clinician Comments Source NO KNOWN ALLERGIE S Drug Class Active [facility] Social History Social Habit Start Date Stop Date Quantity Comments Source History of Tobacco Use [facility] Sex Assigned At [facility] Exposure to SARS-CoV-2 (event) Not sure [facility] Smoking Status Start Date Stop Date Source Unknown if ever smoked [facility] Never Smoker [facility] Medications Ordered Medication Name Filled Medication Name [...] ONCE, 1 dose, 10/02/20 at 2230, Routine [facility] naproxen (NAPROSYN) 500 mg tablet 10-02 00:00: 00 Yes [id number] 500mg Take 1 tablet by mouth 2 (two) times daily with meals. [facility] Centrum Silver - Centrum Silver - [...] height 2023-03-11 15:15:00 69 [in_i] Commo n [facility] weight 2023-03-11 15:15:00 185.6 [lb_av] Co mmon [facility] temperature 2023-03-11 15:15:00 98.5 [degF] Com mon [facility] bmi 2023-03-11 15:15:00 27.41 kg/m2 Comm on [facility] oximetry 2023-03-11 15:15:00 97 % Commo n [facility] respiratory rate 2023-03-11 15:15:00 18 /min [facility] blood pressure systolic 2023-03-11 15:15:00 173 mm[Hg] [facility] blood pressure diastolic 2023-03-11 15:15:00 90 mm[Hg] [facility] height 2022-07-16 15:15:00 69 [in_i] Commo n [facility] weight 2022-07-16 15:15:00 180 [lb_av] Comm on [facility] temperature 2022-07-16 15:15:00 98 [degF] Comm on [facility] bmi 2022-07-16 15:15:00 26.58 kg/m2 Comm on [facility] oximetry 2022-07-16 15:15:00 99 % Commo n [facility] respiratory rate 2022-07-16 15:15:00 18 /min [facility] blood pressure systolic 2022-07-16 15:15:00 126 mm[Hg] [facility] blood pressure diastolic 2022-07-16 15:15:00 86 mm[Hg] [facility] height 2022-04-14 15:00:00 69 [in_i] Commo n [facility] weight 2022-04-14 15:00:00 171 [lb_av] Comm on [facility] temperature 2022-04-14 15:00:00 98.6 [degF] Com mon [facility] bmi 2022-04-14 15:00:00 25.25 kg/m2 Comm on [facility] oximetry 2022-04-14 15:00:00 99 % Commo n [facility] respiratory rate 2022-04-14 15:00:00 18 /min [facility] blood pressure systolic 2022-04-14 15:00:00 141 mm[Hg] [facility] blood pressure diastolic 2022-04-14 15:00:00 75 mm[Hg] [facility] Systolic blood pressure 2020-10-03 02:20:00 168 mm[Hg] [facility] Diastolic blood pressure 2020-10-03 02:20:00 92 mm[Hg] [facility] Heart rate 2020-10-03 02:20:00 105 /min [facility] Respiratory rate 2020-10-03 02:20:00 16 /min [facility] Oxygen saturation in Arterial blood by Pulse oximetry 2020-10-03 02:20:00 97 /min [facility] acute hospital Body weight 2020-10-03 00:47:[address] [facility] Body temperature 2020-10-02 20:07:00 36.78 [place] [facility] Systolic blood pressure 2020-10-03 02:20:00 168 mm[Hg] [facility] acute hospital Diastolic blood pressure 2020-10-03 02:20:00 92 mm[Hg] [facility] acute hospital Heart rate 2020-10-03 02:20:00 105 /min [facility] Respiratory rate 2020-10-03 02:20:00 16 /min [facility] Oxygen saturation in Arterial blood by Pulse oximetry 2020-10-03 02:20:00 97 /min [facility] Body weight 2020-10-03 00:47:[address] [facility] Body temperature 2020-10-02 20:07:00 36.78 [place] [facility] Procedures Procedure Date / Time Performed Performing Clinicia n Source CT HEAD WO CONTRAST 2020-10-03 01:03:31 Brianna Kevin [facility] Encounters Start Date/Time End Date/Time Encounter Type Admission Type Attending Clinicians Care Facility Care Department Encounter ID Source 2022-04-14 14:37:03 Outpatient Maverick Ceja [facility] [id number] [facility] 2023-03-11 00:00:00 2023-03-11 00:00:00 OFFICE VISIT ESTAB PT LEVEL 2 [facility] [id number] [facility] 2022-07-16 00:00:00 2022-07-16 00:00:00 OFFICE VISIT EST PT LEVEL 3 [facility] [id number] [facility] 2022-04-14 00:00:00 2022-04-14 00:00:00 OFFICE VISIT NEW PT LEVEL 3 [facility] ST[facility] [id number] [facility] 2020-10-02 16:06:00 2020-10-02 21:32:00 Emergency Brianna Kevin [facility] [id number] 2020-10-02 16:06:00 2020-10-02 21:32:00 Emergency Brianna Kevin [facility] [id number] [facility] 2020-10-02 16:06:00 2020-10-02 16:06:00 Emergency X Brianna KEVIN INMURALI ERT [id number] [facility] Results Test Description Test Time Test [...] this study and agree with theabove report. [facility]
--- NOTE | 2023-08-10 17:59 | RAD REPORT ---
EXAM DESCRIPTION: CT - CTHCSPWOC - 08/10/2023 5:26 pm CLINICAL HISTORY: TRAUMA COMPARISON: Neck Angio dated 07/27/2023; Chest For Pe Angio dated 04/07/2019 TECHNIQUE: Axial thin cut noncontrast CT images of the head were obtained. Axial thin cut noncontrast CT images of the cervical spine were obtained. Multiplanar reformatted images were generated and reviewed. All CT scans are performed using dose optimization technique as appropriate and may include automated exposure control or mA/KV adjustment according to patient size. FINDINGS: CT HEAD WITHOUT CONTRAST: No acute hemorrhage, hydrocephalus or extra-axial collection is identified.No areas of brain edema or midline shift. The paranasal sinuses and mastoids are clear.The calvarium is intact. CT CERVICAL SPINE WITHOUT CONTRAST: No fracture or subluxation.Sclerotic 1.8 cm lesion [place] left aspect of T1 vertebral body exten ding towards the base of the pedicle is stable compared to the 04/07/[address], and favored to re present a benign entity such as a bone island.No prevertebral soft tissues swelling is identified. Incidentally noted irregular mucosal lesion along the distal aspect of the trachea measuring 12 mm in cyst axial extends 7 mm in thickness IMPRESSION: No acute traumatic intracranial or cervical spine findings. Incidentally noted irregular mucosal lesion along the distal aspect of the trachea measuring 12 mm in cyst axial extends 7 mm in thickness, please correlate with direct visualization/bronchoscopy to exc lude a malignant mucosal lesion.
[2023-08-10 18:33] LABS: Absolute Lymphocytes (CBC) 1.6 K/uL (0.7-4.9); Hematocrit 45.9 % (39.6-49.0); Lymphocytes % 18.4 % (15.3-44.8); MCV 84.4 fL (80-100); MPV 8.5 fL (7.6-11.3); Platelets 300 thou/uL (152-406); RBC Red Blood Cell Count 5.44 M/uL (4.33-5.43)
[2023-08-10 18:55] LABS: Albumin 3.8 g/dL (3.4-5.0); Bilirubin Total 0.3 mg/dL (0.2-1.0); Magnesium 1.9 mg/dL (1.6-2.4); Potassium 4.1 mEq/L (3.5-5.1); Protein, Total 8.2 g/dL (6.4-8.2); Troponin High Sensitivity 7.6 pg/mL (<58.9)
--- NOTE | 2023-08-10 21:01 | EDPHYS ---
Physician Documentation [facility] Name: Franklin Donahue Age: 82 yrs Sex: Male : 1940 Arrival Date: 08/10/2023 Time: 16:20 Bed 13 Private MD: ED Physician Colin Brown HPI: 08/10 18:06 This 82 yrs old Black Male presents to ER via Wheelchair with complaints of General rt Weakness. 18:06 Patient presents to the ED with generalized weakness, fall, patient does not remember rt the circumstances around the fall, but, family did witness it, he fell onto his right elbow, possibly hit his head. He states that he believes that he has had significant of alcohol today. They attribute his weakness to that. He denies other acute complaints at this time, symptoms are moderate in severity, no other aggravating alleviating factors.. Historical: - Allergies: 16:47 No Known Allergies; bp - Home Meds: 16:47 Bystolic 20 mg Oral tab [Active]; Lipitor 10 mg Oral tab [Active]; bp - PMHx: 16:47 Hyperlipidemia; Hypertension; bp - Immunization history:: Adult Immunizations up to date. - Social history:: Smoking status: . - Family history:: not pertinent. ROS: 18:06 Constitutional: Negative for fever, chills, and weight loss, Cardiovascular: Negative rt for chest pain, palpitations, and edema, Respiratory: Negative for shortness of breath, cough, wheezing, and pleuritic chest pain, Abdomen/GI: Negative for abdominal pain, nausea, vomiting, diarrhea, and constipation, 18:06 Skin: Positive for abrasion(s), Negative for laceration(s), 18:06 Neuro: Positive for weakness, Negative for altered mental status, Exam: 18:06 Constitutional: This is a well developed, well nourished patient who is awake, alert, rt and in no acute distress. Head/Face: Normocephalic, atraumatic. Chest/axilla: Normal chest wall appearance and motion. Nontender with no deformity. No lesions are appreciated. Cardiovascular: Regular rate and rhythm with a normal S1 and S2. No gallops, murmurs, or rubs. Normal PMI, no JVD. No pulse deficits. Respiratory: Lungs have equal breath sounds bilaterally, clear to auscultation and percussion. No rales, rhonchi or wheezes noted. No increased work of breathing, no retractions or nasal flaring. Abdomen/GI: Soft, non-tender, with normal bowel sounds. No distension or tympany. No guarding or rebound. No evidence of tenderness throughout. Skin: Warm, dry with normal turgor. Normal color with no rashes, no lesions, and no evidence of cellulitis. Neuro: Awake and alert, GCS 15, oriented to person, place, time, and situation. Cranial nerves II-XII grossly intact. Motor strength 5/5 in all extremities. Sensory grossly intact. Cerebellar exam normal. Normal gait. 18:06 Musculoskeletal/extremity: Abrasion to the right elbow, no focal tenderness, no deformities, range of motion. 18:06 Neuro: 20:55 ECG was reviewed by the Attending Physician. ci Vital Signs: 16:46 BP 142 / 69; Pulse 73; Resp 16; Temp 98.2; Pulse Ox 100% ; bp 20:00 BP 145 / 74; Pulse 76; Pulse Ox 100% on R/A; nw1 21:19 BP 142 / 72; Pulse 88; Resp 17; Pulse Ox 99% ; nw1 21:46 BP 137 / 71; nw1 Ting Coma Score: 20:00 Eye Response: spontaneous(4). Motor Response: obeys commands(6). Verbal Response: nw1 oriented(5). Total: 15. MDM: 16:54 Patient medically screened. rt 19:09 Special discussion: I discussed with the patient the need to follow-up with the ci PCP/specialist for the noted incidental finding on X-ray/CT scanning. ED course: Patient signed out to me by Dr. Roberts pending labs and imaging. Imaging unremarkable, incidental finding of 12 mm tracheal cyst which was disclosed to patient and family. Lab work is grossly unremarkable except serum ethanol of 212 likely etiology of patient's symptoms. He is stable for discharge with family. 21:02 Data reviewed: vital signs, nurses notes. ci 21:29 Differential Diagnosis altered mental status, sepsis, flu, Intoxication . ED course: CT sp4 - EXAM DESCRIPTION: CT - CTHCSPWOC - 08/10/2023 5:26 pm CLINICAL HISTORY: TRAUMA COMPARISON: Neck Angio dated 07/27/2023; Chest For Pe Angio dated 04/07/2019 TECHNIQUE: Axial thin cut noncontrast CT images of the head were obtained. Axial thin cut noncontrast CT images of the cervical spine were obtained. Multiplanar reformatted images were generated and reviewed. All CT scans are performed using dose optimization technique as appropriate and may include automated exposure control or mA/KV adjustment according to patient size. FINDINGS: CT HEAD WITHOUT CONTRAST: No acute hemorrhage, hydrocephalus or extra-axial collection is identified.No areas of brain edema or midline shift. The paranasal sinuses and mastoids are clear.The calvarium is intact. CT CERVICAL SPINE WITHOUT CONTRAST: No fracture or subluxation.Sclerotic 1.8 cm lesion [place] left aspect of T1 vertebral body extending towards the base of the pedicle is stable compared to the 04/07/[address], and favored to represent a benign entity such as a bone island.No prevertebral soft tissues swelling is identified. Incidentally noted irregular mucosal lesion along the distal aspect of the trachea measuring 12 mm in cyst axial extends 7 mm in thickness IMPRESSION: No acute traumatic intracranial or cervical spine findings. Incidentally noted irregular mucosal lesion along the distal aspect of the trachea measuring 12 mm in cyst axial extends 7 mm in thickness, please correlate with direct visualization/bronchoscopy to exclude a malignant mucosal lesion. . ED course: CT revealed mucosal lesion that warrants investigation by ENT. Patient states he will see Dr. Anil Denson with ENT for follow up , Patient is a smoker. Advised follow up in the next 2 to 4 weeks. . 08/10 16:55 Order name: CBC with Diff; Complete Time: 19:05 rt 08/10 16:55 Order name: CMP; Complete Time: 19:05 rt 08/10 16:55 Order name: Magnesium; Complete Time: 19:05 rt 08/10 16:55 Order name: CPK; Complete Time: 19:05 rt 08/10 16:55 Order name: ETOH Level; Complete Time: 19:05 rt 08/10 19:05 Interpretation: Abnormal: ETOH 212. ci 08/10 16:55 Order name: Troponin High Sensitivity; Complete Time: 19:05 rt 08/10 19:07 Interpretation: Within normal limits. ci 08/10 16:55 Order name: CT Head C Spine; Complete Time: 18:05 rt 08/10 19:08 Interpretation: Per Radiologist's finding(s): IMPRESSION: No acute traumatic ci intracranial or cervical spine findings. Incidentally noted irregular mucosal lesion along the distal aspect of the trachea measuring 12 mm in cyst axial extends 7 mm in thickness, please correlate with direct visualization/bronchoscopy to exclude a malignant mucosal lesion. 08/10 16:55 Order name: EKG; Complete Time: 16:56 rt 08/10 16:55 Order name: EKG - Nurse/Tech; Complete Time: 20:35 rt 08/10 18:20 Order name: IV Start; Complete Time: 18:20 ll1 EC:55 Rate is 73 beats/min. Rhythm is regular. QRS [place] is Normal. Clinical impression: ci Normal ECG and No evidence of ischemia. Interpreted by me. Administered Medications: 20:22 Drug: NS 0.9% IV 1000 ml IV at 1 bolus Per protocol; 1000 mL bolus Route: IV; Rate: 1 nw1 bolus; Site: right antecubital; Disposition Summary: 08/10/23 21:22 Discharge Ordered Problem: new sp4 Symptoms: have improved sp4 Condition: Stable(08/10/23 21:22) sp4 Diagnosis - Alcohol use, unspecified with intoxication sp4 - Mucosal lesion, acute alcohol intoxication, acute generalized weakness sp4 Followup: sp4 - With: Nica Ma MD - When: 7 - 10 days - Reason: Recheck today's complaints Discharge Instructions: - Discharge Summary Sheet sp4 - Alcohol Intoxication sp4 Forms: - Patient Portal Instructions sp4 Signatures: Dispatcher [employer] EDJose A Nolan RN RN Justo Donahue RN RN ll1 Joce Roberts MD MD rt Colin Brown MD MD sp4 Gume Montemayor Opal Villa RN RN nw1 Corrections: (The following items were deleted from the chart) 21:09 21:00 Home ci ci 21:09 21:00 Stable ci ci 21:09 21:00 Alcohol abuse with intoxication, unspecified ci ci 21:09 21:00 Muscle weakness (generalized) ci ci 21:09 21:00 Fall on same level, unspecified ci ci 21:09 21:03 Abnormal findings on diagnostic imaging of other specified body structures ci ci
--- NOTE | 2023-08-10 21:01 | ER ---
Nurse's Notes [facility] Name: Franklin Donahue Age: 82 yrs Sex: Male : 1940 Arrival Date: 08/10/2023 Time: 16:20 Bed 13 Private MD: Diagnosis: Alcohol use, unspecified with intoxication;Mucosal lesion, acute alcohol intoxication, acute generalized weakness Presentation: 08/10 16:46 Chief complaint: Patient states: MALAISE AND GEN WKN SINCE Y/D. Coronavirus screen: At bp this time, the client does not indicate any symptoms associated with coronavirus-19. Ebola Screen: No symptoms or risks identified at this time. Initial Sepsis Screen: Does the patient meet any 2 criteria? No. Patient's initial sepsis screen is negative. Does the patient have a suspected source of infection? No. Patient's initial sepsis screen is negative. Risk Assessment: Do you want to hurt yourself or someone else? Patient reports no desire to harm self or others. Onset of symptoms is unknown. 16:46 Method Of Arrival: Wheelchair bp 16:46 Acuity: CORY 3 bp Triage Assessment: 16:47 General: Appears in no apparent distress. Behavior is calm, cooperative, appropriate bp for age, HARD OF HEARING. Pain: Denies pain. Historical: - Allergies: 16:47 No Known Allergies; bp - Home Meds: 16:47 Bystolic 20 mg Oral tab [Active]; Lipitor 10 mg Oral tab [Active]; bp - PMHx: 16:47 Hyperlipidemia; Hypertension; bp - Immunization history:: Adult Immunizations up to date. - Social history:: Smoking status: . - Family history:: not pertinent. Screenin:19 [facility] ED Fall Risk Assessment (Adult) History of falling in the last 3 months, nw1 including since admission Yes- single mechanical fall (1 pt) Confusion or Disorientation No (0 pts) Intoxicated or Sedated No (0 pts) Impaired Gait Yes (1 pt) Mobility Assist Device Used No (0 pt) Altered Elimination No (0 pt) Score/Fall Risk Level 3 or more points = High Risk Oriented to surroundings, Maintained a safe environment, Educated pt \T\ family on fall prevention, incl call for assistance when getting out of bed, Assessed \T\ reinforced patient's understanding of fall precautions, Provided non-skid footwear, Hourly rounding (assess needs \T\ fall precautionary measures) done. Abuse screen: Denies threats or abuse. Denies injuries from another. Nutritional screening: No deficits noted. Tuberculosis screening: No symptoms or risk factors identified. Assessment: 18:20 Reassessment: No changes from previously documented assessment. Patient and/or family ll1 updated on plan of care and expected duration. Pain level reassessed. 19:48 Reassessment: PT NOTED IN ROOM. NO REPORT RECEIVED. SPOKE WITH PATIENT AND FRIENDS OF nw1 PATIENT. UNCLEAR IF A FALL OCCURRED UPON SPEAKING WITH PT. PER FRIENDS, PT WAS FOUND ON FLOOR BUT UNCLEAR ON IF HE FELL, IN SAME CONVERSATION, FRIENDS STATE THEY CAUGHT PATIENT OFF OF FLOOR. PT DENIES BLOOD THINNERS. CALL LIGHT AT BEDSIDE. FLUIDS GIVEN. PT TOLERATED. WILL CONTINUE TO MONITOR. Vital Signs: 16:46 BP 142 / 69; Pulse 73; Resp 16; Temp 98.2; Pulse Ox 100% ; bp 20:00 BP 145 / 74; Pulse 76; Pulse Ox 100% on R/A; nw1 21:19 BP 142 / 72; Pulse 88; Resp 17; Pulse Ox 99% ; nw1 21:46 BP 137 / 71; nw1 Ting Coma Score: 20:00 Eye Response: spontaneous(4). Motor Response: obeys commands(6). Verbal Response: nw1 oriented(5). Total: 15. ED Course: 16:21 Patient arrived in ED. ts1 16:22 Joce Roberts MD is Attending Physician. rt 16:47 Triage completed. bp 16:47 Arm band placed on. bp 17:28 CT Head C Spine In Process Unspecified. EDMS 18:20 Inserted saline lock: 22 gauge in right antecubital area, using aseptic technique. ll1 Blood collected. 19:04 Opal Villa, RN is Primary Nurse. nw1 20:55 Attending Physician role handed off by Joce Roberts MD ci 20:55 Gume Montemayor is Attending Physician. ci 21:08 Attending Physician role handed off by Gume Montemayor sp4 21:08 Colin Brown MD is Attending Physician. sp4 21:19 Placed in gown. Bed in low position. Call light in reach. Side rails up X2. Provided nw1 Education on: POC. Client placed on continuous cardiac and pulse oximetry monitoring. NIBP monitoring applied. groundwater monitoring technician on. Pulse ox on. Door closed. Noise minimized. Warm blanket given. 21:19 No provider procedures requiring assistance completed. IV is patent, is intact, with nw1 fluids not infusing freely, without good blood return. 21:21 Nica Ma MD is Referral Physician. sp4 21:46 IV discontinued, intact, bleeding controlled, No redness/swelling at site. Pressure nw1 dressing applied. Administered Medications: 20:22 Drug: NS 0.9% IV 1000 ml IV at 1 bolus Per protocol; 1000 mL bolus Route: IV; Rate: 1 nw1 bolus; Site: right antecubital; Medication: 21:19 VIS not applicable for this client. nw1 Outcome: 21:00 Discharge ordered by . ci 21:22 Discharge ordered by . sp4 21:48 Patient left the ED. nw1 Signatures: Dispatcher [employer] EDMS Jose A Donahue, RN RN bp Justo Donahue RN RN ll1 Joce Roberts MD MD rt Colin Brown MD MD sp4 Nola Santos PAS PAS ts1 IheonuneGume flores ci Opal Villa, RN RN nw1
[2023-08-10 23:19] VITALS: BP 137/71; TEMP 98.2; O2SAT 99
--- NOTE | 2023-08-13 13:29 | EKG ---
Test Date: 2023-08-10 Test Time: 20:30:54 Vat Cleaner: ALAN MEASUREMENT RESULTS: Intervals: Rate: 73 MO: 184 QRSD: 142 QT: 438 QTc: 482 Mobile: P: 83 MO: 184 QRS: 112 T: 59 INTERPRETIVE STATEMENTS: Normal sinus rhythm Right bundle branch block Abnormal ECG Compared to ECG 07/27/2023 16:10:07 Atrial premature complex(es) no longer present Electronically Signed On 08-13-23 13:23:09 CONSTRUCTION ASSISTANT by Bolivar Strong
== END ==
LOC: ER 16:20
DX: F10.129 Alcohol abuse with intoxication, unspecified (principal); K13.70 Unspecified lesions of oral mucosa; I10 Essential (primary) hypertension; E78.5 Hyperlipidemia, unspecified
CPT/HCPCS: 85025; 36415; 83735; 82550; 84484; 80053; 70450; 72125; 99285; 82077; J7030; 93005